=== PATIENT | male | born 1955 | race Caucasian/White ===

== ENCOUNTER 2022-09-05 16:10 | Outpatient (CLI) | payer MEDICAID, SELFPAY ==
--- NOTE | 2022-09-05 16:00 | RT.EKG_ITS ---
APPROVED REPORT Exam: Resting ECG Reason for Exam: chest discomfort Patient Location: O HR:97 bpm ECG Measurements Heart Rate 97 AXIS IA 195 P 59 QRSd 123 QRS -8 QT 377 T 36 QTc 479 Conclusion Sinus rhythm...normal P axis, V-rate 50- 99 Probable left atrial enlargement...P >50mS, <-0.10mV V1 IVCD, consider atypical RBBB...QRSd>120mS, terminal axis(90,270)
== END 2022-09-05 16:11 | disposition home or self-care (01) ==
LOC: DI.CM 16:11
PROVIDERS: Visit Provider Nurse Practitioner Family
DX: R07.89 Other chest pain (principal); R94.31 Abnormal electrocardiogram [ECG] [EKG]
CPT/HCPCS: 93010

== ENCOUNTER 2022-09-05 16:47 | Emergency (ER) | payer MEDICAID, SELFPAY ==
[2022-09-05 16:59] VITALS: BP 155/103; PULSE 86; RESP 18; TEMP 36.8; O2SAT 99
--- NOTE | 2022-09-05 17:00 | RT.EKG_ITS ---
APPROVED REPORT Exam: Resting ECG Reason for Exam: sob Patient Location: E HR:93 bpm ECG Measurements Heart Rate 93 AXIS CA 167 P 50 QRSd 112 QRS 4 QT 376 T 19 QTc 467 Conclusion Sinus rhythm...normal P axis, V-rate 60- 99 Incomplete right bundle branch block...QRSd >112, terminal axis(90,270)
[2022-09-05 18:14] VITALS: BP 177/98; PULSE 91; RESP 18; TEMP 36.7; O2SAT 94
[2022-09-05 19:49] VITALS: BP 169/104; PULSE 92; RESP 18; TEMP 37.2; O2SAT 96
--- NOTE | 2022-09-05 20:00 | DI.CT_ITS ---
Exam(s) CT CHEST PE ABD PELVIS W EXAM: CT CHEST PE ABD PELVIS W CLINICAL HISTORY: left sided chest and abdominal pain. TECHNIQUE: Imaging Protocol: Axial CT angiography was performed with multi-slice acquisition and mu lti-planar and/or 3D reconstructions. CONTRAST MATERIAL: Intravenous: Omnipaque 350contrast volume:100 mL COMPARISON: No exams were available for comparison FINDINGS: CHEST: Tracheobronchial tree: Patent where visualized. Pulmonary parenchyma: No consolidation or dominant measurable mass. No architectural distortion. Ther e is a 7 mm triangular subpleural nodule in the left lung apex laterally. Pulmonary Arteries: No evidence of filling defect to suggest pulmonary emboli. Mediastinum and Sharri: No dominant adenopathy or fluid collection. The esophagus is unremarkable. Ther e is a small hiatal hernia. Visualized thyroid gland: Unremarkable. Pleura: No effusion or pneumothorax. Heart: The heart is not dilated. No coronary artery calcifications are seen. No pericardial effusion. Aorta: Thoracic aorta non-dilated. No evidence of dissection. Bones: Within normal limits for the patient's age. Soft tissues: Unremarkable. ABDOMEN: Liver: Normal density. No measurable mass. Portal, Superior Mesenteric, and Splenic Veins: Unremarkable. Gallbladder and Biliary Tract: No radiodense calculus or dilation. Pancreas: Normal density, no abnormal calcifications or inflammatory process. Spleen: Normal. Adrenals: No masses seen. Kidneys: Normal size, contour and axis. No radiodense stones or obstructive uropathy. No masses seen. Abdominal Aorta: Abdominal portion non-dilated. Mild atherosclerosis. Bowel: No obstruction or bowel wall thickening. Appendix is unremarkable. There are few scattered col onic diverticuli but no evidence of acute diverticulitis. Peritoneal Cavity: No ascites, collection or mesenteric inflammatory response. No free air. Lymph Nodes: Within normal limits. Bones: Within normal limits for the patient's age. Soft Tissues: Unremarkable. PELVIS: Bladder: Symmetric distention, no gross wall thickening. Reproductive Organs: There is an enlarged prostate gland. Lymph Nodes: Within normal limits. Bones: Within normal limits. IMPRESSION: 1. No evidence pulmonary embolism, thoracic aortic dissection or aneurysm. 2. No acute pulmonary process. 3. No acute abdominal or pelvic process. 4. 7 mm subpleural area of nodularity in the left lung apex laterally. For low risk patients, recomm end CT a 12-6 months, then consider CT at 18-24 months. For high risk patients (history of smoking o r other risk factors), recommend CT at 6-12 months, then at 18-24 months. (Avis et al, 2017). RADIATION DOSE DELIVERED: 1,153.36mGy.cm Total DLP DATA REPOSITORY: All CT scans at this facility are submitted to the National Radiology Data Registry (NRDR) Dose Index Registry (DIR) with the [employer] (A[employer]). RADIATION OPTIMIZATION: All CT scans at this facility use at least one of these dose optimization te chniques: automated exposure control; mA and/or kV adjustment per patient size (includes targeted exa ms where dose is matched to clinical indication); or iterative reconstruction.
--- NOTE | 2022-09-05 20:03 | ED.GENADUL_ITS ---
Discharge Plan Disposition Patient Disposition: Home Condition: Stable Discharge Details Clinical Impression: Chest pain Primary Care Provider: Unknown,Unknown ED Provider: Torin Manning Home Meds and New Rx's Prescriptions: Continued acetaminophen [Tylenol] 325 mg capsule 325 mg PO ONCE PRN Discharge Instructions Instructions: Chest Pain (ED) Additional Instructions: your blood work and cat scan did not show emergent concerning findings at this time follow up with your primary care provider within 1 week and also bring up the incidental findings seen on the cat scan if you feel more ill, have severe worsening pain or difficulty breathing return to the emergency department Medical Decision Making 66 yo male with no chronic medical problems comes in with cc of intermittent sharp and aching left sided chest and abdominal pain for 3 days. HE does note he has been under a lot of stress recently from taking care of his aging parents. HE denies any fevers, chills, cough. He states sometimes the pain radiates to the left neck. HE is not a smoker and has never been a chronic smoker. He denies pain with exertion, dyspnea. HE arrives stable and states has no pain now. HE has stable vitals and appears well, caox4 speaking clearly. He has clear lungs, no murmurs, no jvd, soft abdomen though is tender in the left upper abdomen without guarding. Suspect this could be anxiety/stress related, will evaluate for possible nstemi with troponin, and given the left sided sharp chest pain obtain cta of the chest and ct abd/pelvis to evaluate for pathology such as pe or sbo though hasn't had vomiting so feel this is unlikely. labs and imaging unremarkable, has had symptoms over 3 hours so do not feel delta troponin indicated. His ct showed nonemergent incidental findings that I discussed with him and he was given a copy of the vrad report and told to f/u with his pcp. HE feels well and is stable for d/c, return precautions given Differential Diagnosis Differential Diagnosis: nstemi, pe, sbo, anxiety Imaging Data Radiologic Study: Attestation: I personally reviewed and interpreted this imaging study as follows: Imaging: CT Scan Radiologist's impression: 1. No evidence of aortic dissection. No evidence of pulmonary embolism. No acute vascular abnormalities. 2. Small hiatal hernia with suspected mild distal esophageal wall thickening, possibly mild changes of esophagitis. Consider nonemergent esophagram or endoscopic assessment as clinically indicated. 3. The mid to distal colon is largely contracted, probably accounting for the thick- walled appearance although slight adjacent stranding in the descending colon makes it difficult to exclude a mild element of colitis. No evidence of perforation or abscess. 4. There is a 7.5 mm juxtapleural nodule versus nodular fibrosis in the peripheral left pulmonary apex. Please see management recommendations above. 5. Mild diverticulosis involving the distal colon without evidence of acute diverticulitis. 6. Borderline enlarged right paratracheal node, nonspecific. 7. Severe prostate enlargement, nonspecific, correlate with P SA. 8. Additional nonemergent findings detailed above. Lab Data Lab results reviewed: Yes I reviewed the patient's lab results. ECG Data Attestation: I personally reviewed and interpreted this ECG (s) as follows: Prior ECG tracings: available for review Interpretation: sinus rhythm, rate of 93, pr 167, qtc 467, no stemi HPI General Mode of arrival: ambulatory . Date/Time Provider Initiated Documentation: 09/05/22 18:57 . Limitations to Documentation: no limitations . Information obtained by: patient . History of Present Illness 66 year old M presents to the emergency department with the chief complaint of left sided chest pain, described as moderate, Quality is described as aching, and is localized to the chest. Patient reports no radiation. Patient started experiencing this day(s) (3) and it has been intermittent. No relieving factors improve symptom(s), No exacerbating factors reported . Patient notes denies fever/chills and nausea/vomiting. Patient did receive the following treatments prior to arrival, none Related Data Home Medications Medication Instructions Recorded Confirmed acetaminophen 325 mg capsule 325 mg PO ONCE PRN 09/05/22 09/05/22 (Tylenol) Allergies Allergy/AdvReac Type Severity Reaction Status Date / Time codeine Allergy Severe Hives Verified 09/05/22 17:02 General Stated Complaint: Chest Pain NICK: 3 Review of Systems All systems reviewed & are unremarkable except as noted in HPI and below Constitutional Constitutional: Denies chills, Denies fever(s) and Denies weakness Cardiovascular Cardiovascular: Denies dyspnea Respiratory Respiratory: Denies cough and Denies dyspnea Gastrointestinal Gastrointestinal: Denies nausea and Denies vomiting Genitourinary Genitourinary: Denies dysuria Musculoskeletal Musculoskeletal: Denies joint swelling Integumentary/Breasts Skin/Breast: Denies rash Neurologic Neurologic: Denies weakness [facility] All Active Problems (Updated 09/05/22 @ 21:50 by Torin Manning MD) Chest pain (Acute) Social History Smoking/Tobacco Use Status: Former Tobacco Use Smoking risk assessment performed?: Yes Alcohol Intake: current Alcohol Intake frequency: 0-2 drinks per day Alcohol type: beer Substance use type: does not use Do you feel safe at home: Yes Do you feel safe in your relationship?: Yes Exam Const General: no acute distress Orientation: alert HENMT Head: normal to inspection Ears: external ears normal General nose exam: external nose normal Mouth: moist mucous membranes Eyes General: appearance normal, both eyes and all related structures Neck Neck: normal visual inspection Resp Effort & Inspection: normal respiratory effort and able to speak in complete sentences Auscultation: clear to auscultation bilaterally Cardio Jugular venous pressure: no JVD Rate: regular rate Heart Sounds: no murmurs GI Palpation: soft and tender Skin General skin exam: no rashes or lesions noted Neuro General: patient alert and patient oriented x3 Extrem General: normal to inspection Psych Mental Status: mental status grossly normal Course Vital Signs Vital signs: Vital Signs Temperature 36.8 C 09/05/22 16:59 Pulse 86 09/05/22 16:59 Respiratory Rate 18 09/05/22 16:59 Blood Pressure 155/103 H 09/05/22 16:59 Pulse Oximetry 99 09/05/22 16:59 Temperature 37.2 C 09/05/22 19:49 Temperature Source Skin 09/05/22 19:49 Pulse 92 H 09/05/22 19:49 Respiratory Rate 18 09/05/22 19:49 Respiratory Effort Normal, Non-Labored 09/05/22 17:01 Blood Pressure 169/104 H 09/05/22 19:49 Pulse Oximetry 96 09/05/22 19:49 Oxygen Delivery Method Room Air 09/05/22 19:49 Oxygen Flow Rate 0 09/05/22 19:49 PAWSS Have you Been Recently Intoxicated or Drunk Within the Last 30 days?: No Have you Ever Experienced Previous Episodes of Alcohol Withdrawal?: No Have you ever Experienced Withdrawal Seizures?: No Have you ever Experienced Delirium Tremens(DT)s?: No Have you ever undergone Alcohol Rehabilitation Treatment (i.e, inpt ot outpatient treatment programs)?: No Have you ever Experienced Blackouts?: No Have you ever Combined Alcohol with other Downers within the last 90 days?: No Have you ever Combined Alcohol with any other Substance of Abuse during the last 90 days?: No Positive Blood Alcohol level on Presentation? [PCS.BAL]: No Evidence of Increased Autonomic Activity (i.e. HR>120, tremor, sweating, agita tion, nausea)?: No Result: 0
[2022-09-05 20:06] LABS: Abs Immature Grans 0.01 10^3/uL (0.0-0.06); Absolute Basophil Count 0.03 10^3/uL (0.0-0.2); Absolute Eosinophil Count 0.03 10^3/uL (0.0-0.7); Absolute Lymphocyte Count 1.25 10^3/uL (1.2-3.4); Absolute Monocyte Count 0.45 10^3/uL (0.1-0.8); Absolute Neutrophil Count 4.93 10^3/uL (1.2-6.7); Basophils % 0.4; Eosinophils % 0.4; HCT 46.6 % (40.0-50.0); HGB 15.9 g/dL (13.5-17.5); Immature Grans % 0.1; Lymphocytes % 18.7; MCH 29.3 pg (27.0-33.0); MCHC 34.1 % (32.0-36.0); MCV 86 fL (80-95); MPV 9.4 fL (8.0-11.0); Monocytes % 6.7; Neutrophils % 73.7; Platelet Count 251 10^3/uL (130-400); RBC 5.42 10^6/uL (4.36-5.78); RDW-SD 40.5 fL
[2022-09-05 20:16] LABS: Bilirubin Negative (Negative); Blood Trace-intact (Negative); Clarity Clear (Clear); Glucose Negative (Negative); Ketones Negative (Negative); Leukocyte Esterase Negative (Negative); Nitrite Negative (Negative); Urobilinogen 0.2 mg/dL (Up to 0.2)
[2022-09-05 20:19] LABS: ALT 20 U/L (16-63); AST 18 U/L (15-37); Albumin 4.3 g/dL (3.4-5.0); Alkaline Phosphatase 73 U/L (46-116); BUN 14 mg/dL (7-18); Bilirubin, Total 0.4 mg/dL (0.2-1.0); CREATININE 1.1 mg/dL (0.70-1.30); Calcium 9.5 mg/dL (8.5-10.1); Chloride 107 mmol/L (98-107); Estimated GFR 74.96 (mL/min/1.73m2); Glucose 115 mg/dL (74-106); Lipase 24 U/L (16-77); Magnesium 2.3 mg/dL (1.8-2.4); Potassium 4.1 mmol/L (3.5-5.1); Sodium 141 mmol/L (136-145); Troponin I < 50 ng/L (<or=60)
[2022-09-05 20:23] LABS: Bacteria Negative HPF (Negative); C & S Indicated? No; Casts Negative LPF (Negative); Crystals Negative HPF (Negative); Epithelial Cells Few HPF (Negative); Mucus Negative (Negative); Other Cells Negative (Negative); WBC 0-2 HPF (0-5)
[2022-09-05] MEDS: Omnipaque 350 MG/ML 100 ML BTL IJ (20:46)
[2022-09-05 21:26] VITALS: BP 189/92; PULSE 84; RESP 20; TEMP 37.1; O2SAT 96
--- NOTE | 2022-09-05 21:33 | DI.VRAD_ITS ---
PROCEDURE INFORMATION: Exam: CTA Chest With Contrast CTA Abdomen With Contrast Exam date and time: 09/05/2022 8:41 PM Age: 66 years old Clinical indication: Chest wall pain; Abdominal pain; Localized; Left upper quadrant (luq); Additional info: Left sided chest and abdominal pain TECHNIQUE: Imaging protocol: Computed tomographic angiography of the chest with contrast. Computed tomographic angiography of the abdomen with contrast. 3D rendering (Not supervised by radiologist): MIP and/or 3D reconstructed images were created by the technologist. Radiation optimization: All CT scans at this facility use at least one of these dose optimization techniques: automated exposure control; mA and/or kV adjustment per patient size (includes targeted exams where dose is matched to clinical indication); or iterative reconstruction. Contrast material: OMNI 350; Contrast volume: 100 ml; Contrast route: INTRAVENOUS (IV); COMPARISON: No relevant prior studies available. FINDINGS: VASCULATURE: Pulmonary arteries: The pulmonary arteries enhance appropriately with no evidence of pulmonary embolism. Slight limitation to the assessment of the small peripheral basilar subsegmental branch vessels due to respiratory motion, although no suspected peripheral emboli were identified. Aorta: The thoracic aorta demonstrates slight tortuosity/ectasia but is otherwise normal. The abdominal aorta demonstrates mild calcific plaque without evidence of aneurysm, dissection, or stenosis. Celiac trunk and mesenteric arteries: The celiac artery demonstrates minor ostial calcific plaque without stenosis. Its major branch vessels are normal. The SMA and its major branch vessels are normal. The JORGE is normal. Renal arteries: The right main renal artery demonstrates mild ostial calcific plaque but is otherwise normal. The left main renal artery is normal. Right iliac arteries: The right common iliac artery demonstrates mild tortuosity and distal calcific plaque but is otherwise normal. The right external iliac artery demonstrates minimal distal calcific plaque but is otherwise normal. Left iliac arteries: The left common iliac artery demonstrates mild-moderate calcific plaque without stenosis and is otherwise normal. The left external iliac artery demonstrates mild tortuosity and mild distal calcific plaque but is otherwise normal. Thyroid: The visualized thyroid gland demonstrates no gross abnormality. CHEST: Lungs: No acute tracheobronchial abnormalities. Bilateral small pulmonary granulomatous calcifications. No gross pulmonary infiltrates or edema pattern. There is a 7.5 mm juxtapleural pulmonary nodule versus nodular scarring in the lateral left pulmonary apex on series 6, image 134. For patients at low risk (minimal or absent history of smoking and of other known risk factors), recommend CT at 6-12 months, then consider CT at 18-24 months. For patients at high risk (history of smoking or of other known risk factors), recommend CT at 6-12 months, then CT at 18-24 months. (Manuel et al., Fleischner Society, 2017). Pleural spaces: No pleural effusion. No pneumothorax. Heart: Heart size normal. Mild coronary artery calcification. No pericardial effusion. Mediastinal space: No mediastinal hematoma. Diaphragm: Small hiatal hernia. Question mild esophageal wall thickening in the distal segment suspicious for esophagitis. Consider nonemergent esophagram or endoscopic assessment as clinically indicated. ABDOMEN AND PELVIS: Liver: Normal contour. No mass lesions. No intrahepatic biliary ductal dilatation. Gallbladder and bile ducts: Normal. No calcified stones. No ductal dilation. Pancreas: Mild pancreatic atrophy without acute abnormality. No pancreatic ductal dilatation. Spleen: Normal. No splenomegaly. Adrenal glands: Normal. No adrenal mass. Kidneys and ureters: No acute abnormalities. No hydronephrosis or hydroureter. No urinary tract stones are identified. Stomach and bowel: The stomach is largely contracted. The small bowel is nondilated with no gross abnormality. The mid to distal colonic segments are largely contracted which probably accounts for the mildly thick-walled appearance although there is questionable slight stranding along the proximal descending colon, can not exclude mild changes of colitis. No perforation or abscess. There is mild distal colonic diverticulosis without evidence of diverticulitis. Appendix: The appendix is normal in caliber and demonstrates no evidence of appendicitis. Intraperitoneal space: No free fluid or air. Urinary bladder: Urinary bladder largely contracted without gross abnormality considering the degree of contraction. Reproductive: Severe prostate enlargement, nonspecific, correlate with PSA. Lymph nodes: No supraclavicular or axillary adenopathy. Borderline enlarged right paratracheal nodes measuring up to 10 mm short axis, nonspecific. No hilar adenopathy. No intra-abdominal/intrapelvic adenopathy. Bones/joints: No acute osseous abnormalities. Moderate-severe disc degenerative changes L4-L5 and L5-S1. Mild generalized thoracolumbar spondylosis. Soft tissues: Very small fatty umbilical hernia . No evidence of associated bowel herniation or strangulation. Prior bilateral inguinal hernia repairs noted without gross complication. IMPRESSION: 1. No evidence of aortic dissection. No evidence of pulmonary embolism. No acute vascular abnormalities. 2. Small hiatal hernia with suspected mild distal esophageal wall thickening, possibly mild changes of esophagitis. Consider nonemergent esophagram or endoscopic assessment as clinically indicated. 3. The mid to distal colon is largely contracted, probably accounting for the thick-walled appearance although slight adjacent stranding in the descending colon makes it difficult to exclude a mild element of colitis. No evidence of perforation or abscess. 4. There is a 7.5 mm juxtapleural nodule versus nodular fibrosis in the peripheral left pulmonary apex. Please see management recommendations above. 5. Mild diverticulosis involving the distal colon without evidence of acute diverticulitis. 6. Borderline enlarged right paratracheal node, nonspecific. 7. Severe prostate enlargement, nonspecific, correlate with PSA. 8. Additional nonemergent findings detailed above. Dictated and Authenticated by: Jasen Maher MD. Ordering:DORY Harkins MD
== END 2022-09-05 22:00 | disposition home or self-care (01) ==
PROVIDERS: Emergency Provider Emergency Medicine
DX: R07.89 Other chest pain (principal)
CPT/HCPCS: 71275; 74177; 80053; 83690; 93005; 99285; 81003; 81015; 83735; 84484; 85025; 93010; 99284; J3490

== ENCOUNTER 2022-10-25 17:15 | Outpatient (CLI) | payer MEDICAID, SELFPAY ==
--- NOTE | 2022-10-25 17:15 | RT.EKG_ITS ---
APPROVED REPORT Exam: Resting ECG Reason for Exam: Anxiety Patient Location: O HR:79 bpm ECG Measurements Heart Rate 79 AXIS ID 170 P 66 QRSd 115 QRS 15 QT 386 T 59 QTc 443 Conclusion Sinus rhythm...normal P axis, V-rate 50- 99 Incomplete right bundle branch block...QRSd >112, terminal axis(90,270)
== END 2022-10-25 17:16 | disposition home or self-care (01) ==
LOC: DI.CM 17:16
PROVIDERS: PCP Nurse Practitioner Family; Visit Provider Nurse Practitioner Family
DX: R07.89 Other chest pain (principal)
CPT/HCPCS: 93010

== ENCOUNTER 2022-10-25 18:18 | Emergency (ER) | payer MEDICAID, SELFPAY ==
--- NOTE | 2022-10-25 18:15 | RT.EKG_ITS ---
APPROVED REPORT Exam: Resting ECG Reason for Exam: chest pain Patient Location: E HR:86 bpm ECG Measurements Heart Rate 86 AXIS WA 167 P 58 QRSd 108 QRS 3 QT 368 T 52 QTc 441 Conclusion Sinus rhythm...normal P axis, V-rate 60- 99
[2022-10-25 18:21] VITALS: BP 160/80; PULSE 85; RESP 20; TEMP 36.8; O2SAT 97
[2022-10-25 19:23] LABS: Abs Immature Grans 0.01 10^3/uL (0.0-0.06); Absolute Basophil Count 0.03 10^3/uL (0.0-0.2); Absolute Eosinophil Count 0.06 10^3/uL (0.0-0.7); Absolute Monocyte Count 0.64 10^3/uL (0.1-0.8); Absolute Neutrophil Count 4.11 10^3/uL (1.2-6.7); Basophils % 0.5; HCT 44.2 % (40.0-50.0); HGB 15.1 g/dL (13.5-17.5); Immature Grans % 0.2; Lymphocytes % 18.5; MCHC 34.2 % (32.0-36.0); MCV 88 fL (80-95); MPV 9.7 fL (8.0-11.0); Monocytes % 10.8; Platelet Count 228 10^3/uL (130-400); RBC 5.03 10^6/uL (4.36-5.78); RDW 12.8 % (11.8-14.1); RDW-SD 41.2 fL; WBC 5.95 10^3/uL (4.4-10.8)
[2022-10-25 19:49] LABS: ALT 19 U/L (16-63); AST 11 U/L (15-37); Albumin 3.8 g/dL (3.4-5.0); Alkaline Phosphatase 72 U/L (46-116); Anion Gap 8.4 mmol/L (3-11); BUN 16 mg/dL (7-18); Bilirubin, Total 0.2 mg/dL (0.2-1.0); CO2 25.6 mmol/L (21.0-32.0); CREATININE 1.3 mg/dL (0.70-1.30); Chloride 105 mmol/L (98-107); Estimated GFR 61.35 (mL/min/1.73m2); Glucose 134 mg/dL (74-106); Lipase 32 U/L (16-77); Magnesium 2.1 mg/dL (1.8-2.4); Potassium 3.7 mmol/L (3.5-5.1); Sodium 139 mmol/L (136-145); TSH (W/Ref FT4) 4.35 uIU/mL (0.36-3.74); Total Protein 7.4 g/dL (6.4-8.2); Troponin I < 50 ng/L (<or=60)
[2022-10-25 19:54] LABS: D-Dimer 480 ng/mlFEU (<500)
[2022-10-25 21:46] VITALS: BP 155/100; PULSE 99; RESP 20; TEMP 36.4; O2SAT 96
[2022-10-25 21:50] VITALS: RESP 16
--- NOTE | 2022-10-25 23:48 | W.ED.GENAD ---
Discharge Plan Disposition Patient Disposition: Home Discharge Details Clinical Impression: Heart palpitations Primary Care Provider: Tio Kim ED Provider: Casie Gordon Home Meds and New Rx's Prescriptions: Continued acetaminophen [Tylenol] 325 mg capsule 325 mg PO ONCE PRN citalopram 10 mg tablet 10 mg PO DAILY Qty: 60 0RF lorazepam [Ativan] 1 mg tablet 1 mg PO BID PRN (Reason: anxiety) Qty: 10 0RF Rx Instructions: may begin with 1/4 tab PRN anxiety. Max dose 2 mg per day Discharge Instructions Instructions: Heart Palpitations (ED) Additional Instructions: Please follow-up for your Holter monitor Continue to take your citalopram as prescribed May be hold the Ativan at this time Follow-up with your doctor and let them know you are experiencing palpitations and return earlier should you have new or worsening complaints Return earlier should you have new or worsening complaints Discharge Orders Other Ambulatory Orders: Holter Monitor (Routine) Timeframe: 1 Week Facility: [facility] - Location: Respiratory Therapy Ordered By: Casie Gordon Discharge Data Discharge Date/Time-TO BE ENTERED AT DEPARTURE: 10/25/22 21:49 Medical Decision Making Patient presents from urgent care for report of palpitations Low suspicion for cardiac etiology of this patient presenting with palpitations in the absence of actual chest discomfort EKG and troponin are negative for acute abnormality Diagnostic labs are reassuring Set up for an outpatient Holter monitor Return precautions reviewed and patient expressed understanding HPI General Date/Time Provider Initiated Documentation: 10/25/22 18:50. HPI Narrative: This healthy 66-year-old gentleman presents with palpitations, recurrent over the course of the past several months. States his symptoms began after dinner this evening, felt his heart was racing and irregular. States it is now resolved. Was sent here from urgent care. Denies any chest discomfort, fever, chills. States he had a similar work-up approximately a month ago that was negative but he was started on citalopram which she started actually yesterday and Ativan today. He states the Ativan made him actually feel more stressed. He denies any calf pain or swelling. Related Data Home Medications Medication Instructions Recorded Confirmed acetaminophen 325 mg capsule 325 mg PO ONCE PRN 09/05/22 10/28/22 (Tylenol) citalopram 10 mg tablet 10 mg PO DAILY #60 tabs 05/11/23 05/15/23 lorazepam 1 mg tablet (Ativan) 1 mg PO BID PRN anxiety #10 tabs 10/24/22 10/28/22 Previous Rx's Medication Instructions Recorded citalopram 10 mg tablet 10 mg PO DAILY #60 tabs 10/24/22 lorazepam 1 mg tablet (Ativan) 1 mg PO BID PRN anxiety #10 tabs 10/24/22 Allergies Allergy/AdvReac Type Severity Reaction Status Date / Time codeine Allergy Severe Hives Verified 10/24/22 09:59 General Stated Complaint: GenMedical NICK: 3 PFSH All Active Problems (Updated 10/28/22 @ 07:05 by Sahara Abdul MD) Heart palpitations (Acute) Anxiety (Chronic) Panic attacks (Acute) Palpitation (Acute) Family History Mother Alcohol use disorder Breast cancer Stroke Heart disease Substance use disorder Father Heart disease Stroke Sister No problems noted. Sister No problems noted. Brother Cancer Prostate Brother Heart disease Brother Heart disease Son No problems noted. Daughter Depression Maternal Grandfather , Unknown Diabetes Heart disease Paternal Grandfather , Unknown No problems noted. Maternal Grandmother , Unknown No problems noted. Paternal Grandmother , Unknown No problems noted. Social History Smoking/Tobacco Use Status: Former Tobacco Use tobacco type: smokeless tobacco Quit Date: 05/16/22 Tobacco: How many years used: 25 Smokeless tobacco user: chewing tobacco Second Hand Exposure: Yes Smoking risk assessment performed?: Yes Alcohol Intake: current Alcohol Intake frequency: holidays/special occasions only Alcohol type: beer Drug use: Never Substance use type: does not use Caregiver/Support person: No Household members: spouse and other Details: Grand Daughter Housing: house Communication Needs: None Pets and animals: Yes Pets and animals: dog(s) Sexually active: Yes Do you think of yourself as: straight/heterosexual Current gender identity: male What is your relationship status?: How often do you talk on the phone with friends or family?: three or more times per week How often do you get together with friends or relatives?: once per week How often do you attend pentecostal or uatsdin services?: decline to answer Do you belong to any clubs or organized social groups?: no Panel score (0-1 are the most socially isolated patients): 2 What type of physical activity do you participate in: walking Duration: 30-45 minutes/day Frequency: daily Marcy/Holiness: No preference Special marcy needs: No Seatbelt use: always Helmet use: Yes Helmet use: sometimes Drive intox 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 Do you feel safe at home: Yes Do you feel safe in your relationship?: Yes Exam Narrative Exam Narrative: Patient is calm and cooperative, pupils equal round reactive to light and accommodation, lungs clear to auscultation, cardiac rate rhythm regular fully alert and oriented, no reproducible chest wall pain, alert and oriented x4, no calf sling or tenderness, neurovascularly intact Course Vital Signs Vital signs: Vital Signs Temperature 36.8 C 10/25/22 18:21 Pulse 85 10/25/22 18:21 Respiratory Rate 20 10/25/22 18:21 Blood Pressure 160/80 H 10/25/22 18:21 Pulse Oximetry 97 10/25/22 18:21 Temperature 36.4 C 10/25/22 21:46 Temperature Source Temporal Artery Scan 10/25/22 18:21 Pulse 99 H 10/25/22 21:46 Respiratory Rate 20 10/25/22 21:46 Respiratory Effort Normal, Non-Labored 10/25/22 18:25 Blood Pressure 155/100 H 10/25/22 21:46 Blood Pressure Position Sitting 10/25/22 18:21 Pulse Oximetry 96 10/25/22 21:46 Oxygen Delivery Method Room Air 10/25/22 18:21 Oxygen Flow Rate 0 10/25/22 18:21 Pain Level 0 10/25/22 18:21 Lab/Test Results Lab/Test Results: Laboratory Tests Range/Units 10/25/22 10/25/22 10/25/22 19:15 19:15 19:15 WBC (4.4-10.8) 10^3/uL 5.95 RBC (4.36-5.78) 10^6/uL 5.03 Hgb (13.5-17.5) g/dL 15.1 Hct (40.0-50.0) % 44.2 MCV (80-95) fL 88 MCH (27.0-33.0) pg 30.0 MCHC (32.0-36.0) % 34.2 RDW (11.8-14.1) % 12.8 Plt Count (130-400) 10^3/uL 228 MPV (8.0-11.0) fL 9.7 Immature Gran % 0.2 Neutrophils % 69.0 Lymphocytes % 18.5 Monocytes % 10.8 Eosinophils % 1.0 Basophils % 0.5 Nucleated RBC % (0.0-0.3) % 0.0 Absolute Neutrophils (1.2-6.7) 10^3/uL 4.11 Absolute Lymphocytes (1.2-3.4) 10^3/uL 1.10 L Absolute Monocytes (0.1-0.8) 10^3/uL 0.64 Absolute Eosinophils (0.0-0.7) 10^3/uL 0.06 Absolute Basophils (0.0-0.2) 10^3/uL 0.03 D-Dimer (<500) ng/mlFEU 480 Sodium (136-145) mmol/L 139 Potassium (3.5-5.1) mmol/L 3.7 Chloride (98-107) mmol/L 105 Carbon Dioxide (21.0-32.0) mmol/L 25.6 Anion Gap (3-11) mmol/L 8.4 BUN (7-18) mg/dL 16 Creatinine (0.70-1.30) mg/dL 1.3 Est GFR (CKD-EPI 2020) (mL/min/1.73m2) 61.35 Glucose (74-106) mg/dL 134 H Calcium (8.5-10.1) mg/dL 9.0 Magnesium (1.8-2.4) mg/dL 2.1 Total Bilirubin (0.2-1.0) mg/dL 0.2 AST (15-37) U/L 11 L ALT (16-63) U/L 19 Alkaline Phosphatase (46-116) U/L 72 Troponin I (<or=60) ng/L < 50 Total Protein (6.4-8.2) g/dL 7.4 Albumin (3.4-5.0) g/dL 3.8 Lipase (16-77) U/L 32 TSH (0.36-3.74) uIU/mL 4.35 H Free T4 (0.76-1.46) ng/dL 0.90 Range/Units 10/25/22 21:56 WBC (4.4-10.8) 10^3/uL RBC (4.36-5.78) 10^6/uL Hgb (13.5-17.5) g/dL Hct (40.0-50.0) % MCV (80-95) fL MCH (27.0-33.0) pg MCHC (32.0-36.0) % RDW (11.8-14.1) % Plt Count (130-400) 10^3/uL MPV (8.0-11.0) fL Immature Gran % Neutrophils % Lymphocytes % Monocytes % Eosinophils % Basophils % Nucleated RBC % (0.0-0.3) % Absolute Neutrophils (1.2-6.7) 10^3/uL Absolute Lymphocytes (1.2-3.4) 10^3/uL Absolute Monocytes (0.1-0.8) 10^3/uL Absolute Eosinophils (0.0-0.7) 10^3/uL Absolute Basophils (0.0-0.2) 10^3/uL D-Dimer (<500) ng/mlFEU Sodium (136-145) mmol/L Potassium (3.5-5.1) mmol/L Chloride (98-107) mmol/L Carbon Dioxide (21.0-32.0) mmol/L Anion Gap (3-11) mmol/L BUN (7-18) mg/dL Creatinine (0.70-1.30) mg/dL Est GFR (CKD-EPI 2020) (mL/min/1.73m2) Glucose (74-106) mg/dL Calcium (8.5-10.1) mg/dL Magnesium (1.8-2.4) mg/dL Total Bilirubin (0.2-1.0) mg/dL AST (15-37) U/L ALT (16-63) U/L Alkaline Phosphatase (46-116) U/L Troponin I (<or=60) ng/L Cancelled Total Protein (6.4-8.2) g/dL Albumin (3.4-5.0) g/dL Lipase (16-77) U/L TSH (0.36-3.74) uIU/mL Free T4 (0.76-1.46) ng/dL
== END 2022-10-25 21:49 | disposition home or self-care (01) ==
PROVIDERS: Emergency Provider Physician Assistant; PCP Nurse Practitioner Family
DX: R11.0 Nausea (principal); R42 Dizziness and giddiness; R00.2 Palpitations; R07.9 Chest pain, unspecified
CPT/HCPCS: 80053; 83690; 93005; 99283; 83735; 84439; 84443; 84484; 85025; 85379; 93010

== ENCOUNTER 2022-10-28 05:35 | Emergency (ER) | payer MEDICAID, SELFPAY ==
[2022-10-28] VITALS (16 sets, daily range): BP systolic 116–163; BP diastolic 75–90; PULSE 60–77; RESP 13–24; TEMP 37.2; O2SAT 92–100
--- NOTE | 2022-10-28 05:30 | RT.EKG_ITS ---
APPROVED REPORT Exam: Resting ECG Reason for Exam: chest pain Patient Location: E HR:76 bpm ECG Measurements Heart Rate 76 AXIS OH 155 P 8 QRSd 119 QRS 6 QT 398 T 36 QTc 448 Conclusion Sinus rhythm...normal P axis, V-rate 60- 99 Incomplete right bundle branch block...QRSd >112, terminal axis(90,270) No interum change vs 09/05
--- NOTE | 2022-10-28 05:45 | DI.RAD_ITS ---
Exam(s) XR PORTABLE CHEST AP EXAM: XR PORTABLE CHEST AP CLINICAL HISTORY: SOB, CP TECHNIQUE: 2D digital imaging was performed. COMPARISON: No exams were available for comparison FINDINGS: LUNGS: Clear. No pleural abnormality seen. HEART: Normal size. AORTA: Normal diameter. BONES: Unremarkable for age. Soft tissues: Unremarkable. IMPRESSION: No acute findings. DATA REPOSITORY: RADIATION DOSE DELIVERED:
--- NOTE | 2022-10-28 05:49 | ED.GENADUL_ITS ---
Discharge Plan Disposition Patient Disposition: Home Condition: Good Discharge Details Clinical Impression: Anxiety, Panic attacks Primary Care Provider: Tio Kim ED Provider: Sahara Abdul Home Meds and New Rx's Prescriptions: Continued acetaminophen [Tylenol] 325 mg capsule 325 mg PO ONCE PRN citalopram 10 mg tablet 10 mg PO DAILY Qty: 60 0RF lorazepam [Ativan] 1 mg tablet 1 mg PO BID PRN (Reason: anxiety) Qty: 10 0RF Rx Instructions: may begin with 1/4 tab PRN anxiety. Max dose 2 mg per day Discharge Instructions Instructions: Anxiety (ED), Panic Attack (ED) Additional Instructions: Return home and rest. If you become anxious again you need to take 1 mg of lorazepam or 1 tablet at a time. Return to ED for crushing chest pain or shortness of breath. Follow-up with your new primary care doctor as scheduled later this month. Medical Decision Making After 2 mg of IV Ativan the patient is calm and all of his symptoms have resolved. We had a long discussion about anxiety and panic attacks. He has an appointment to see his new PCP the end of this month. He does have a small amount of Ativan to use as needed. I have advised him to take an entire 1 mg tablet if he needs it. He will return to the ED for crushing chest pain, severe difficulty breathing, any other concerns. Medical Records Medical records reviewed: Yes I reviewed the patient's medical records. Imaging Data Radiologic Study: Radiologist's impression: CXR: NAD Lab Data Lab results reviewed: Yes I reviewed the patient's lab results. Lab results narrative: Patient has an elevated anion gap of little over 17. I suspect this is related to his citalopram has the remainder of his labs look pretty good. His TSH from 512 was 4.35 with a free T4 of 0.9. Trop is nl topday. So ECG Data Attestation: I personally reviewed and interpreted this ECG (s) as follows: (NSR 75, incomplete RBBB, no ST abnl, no change versus 09/05) HPI General Date/Time Provider Initiated Documentation: 10/28/22 05:49 . HPI Narrative: This 66-year-old male patient with a history of anxiety and panic attacks presents with chest pain and shortness of breath. Patient states that he was just given lorazepam to take for his panic attacks. He was told to take 1/4 tablet as needed, took it once, and thinks that he felt worse. I reassured him that I do not think it was the Ativan making him feel worse. When I ask him what his typical panic attacks are like he says that he breaks out into a sweat, feels his heart pounding, gets short of breath, has discomfort that goes into his left arm, and feels dizzy. He has been ongoing for years but this morning's is a little bit worse. He awoke several hours ago with the symptoms. He says he has just a little bit of pain on the left-hand side and feels some pain under his left scapula. When I asked him about the pain under his left scapula he states that this is constant and baseline with his panic attacks as well. He denies fever, URI symptoms, headache, belly pain, vomiting, or dysuria. There is no pedal edema or calf pain. He does acknowledge a small amount of diarrhea a night ago. Related Data Home Medications Medication Instructions Recorded Confirmed acetaminophen 325 mg capsule 325 mg PO ONCE PRN 09/05/22 10/28/22 (Tylenol) citalopram 10 mg tablet 10 mg PO DAILY #60 tabs 10/24/22 10/28/22 lorazepam 1 mg tablet (Ativan) 1 mg PO BID PRN anxiety #10 tabs 10/24/22 10/28/22 Previous Rx's Medication Instructions Recorded citalopram 10 mg tablet 10 mg PO DAILY #60 tabs 10/24/22 lorazepam 1 mg tablet (Ativan) 1 mg PO BID PRN anxiety #10 tabs 10/24/22 Allergies Allergy/AdvReac Type Severity Reaction Status Date / Time codeine Allergy Severe Hives Verified 10/24/22 09:59 General Stated Complaint: Chest Pain NICK: 3 Review of Systems Constitutional Constitutional: Denies chills, Denies fever(s), Denies headache(s), Denies weakness and Reports other (Had sweats) Eyes Eyes: Denies diplopia and Reports other (no redness) ENT Ears, Nose, Mouth, and Throat: Denies vertigo, Reports dizziness, Denies otalgia, Denies headache(s), Denies nasal congestion, Denies nasal discharge, Denies neck pain and Denies sore throat Cardiovascular Cardiovascular: Reports chest pain, Reports palpitations and Reports dyspnea Respiratory Respiratory: Denies cough and Reports dyspnea Gastrointestinal Gastrointestinal: Denies abdominal pain, Denies diarrhea, Denies nausea and Denies vomiting Genitourinary Genitourinary: Denies difficulty urinating and Denies dysuria Musculoskeletal Musculoskeletal: Denies myalgias, Denies muscle weakness, Denies neck pain, Denies numbness and Reports other (edema) Integumentary/Breasts Skin/Breast: Denies change in pigmentation and Denies rash Neurologic Neurologic: Denies vertigo, Reports dizziness, Denies headache(s), Denies numbness and Denies weakness Endocrine Endocrine: Reports palpitations PFSH All Active Problems (Updated 10/28/22 @ 07:05 by Sahara Abdul MD) Heart palpitations (Acute) Anxiety (Chronic) Panic attacks (Acute) Palpitation (Acute) Family History Mother Alcohol use disorder Breast cancer Stroke Heart disease Substance use disorder Father Heart disease Stroke Sister No problems noted. Sister No problems noted. Brother Cancer Prostate Brother Heart disease Brother Heart disease Son No problems noted. Daughter Depression Maternal Grandfather , Unknown Diabetes Heart disease Paternal Grandfather , Unknown No problems noted. Maternal Grandmother , Unknown No problems noted. Paternal Grandmother , Unknown No problems noted. Social History Smoking/Tobacco Use Status: Former Tobacco Use tobacco type: smokeless tobacco Quit Date: 05/16/22 Tobacco: How many years used: 25 Smokeless tobacco user: chewing tobacco Second Hand Exposure: Yes Smoking risk assessment performed?: Yes Alcohol Intake: current Alcohol Intake frequency: holidays/special occasions only Alcohol type: beer Drug use: Never Substance use type: does not use Caregiver/Support person: No Household members: spouse and other Details: Grand Daughter Housing: house Communication Needs: None Pets and animals: Yes Pets and animals: dog(s) Sexually active: Yes Do you think of yourself as: straight/heterosexual Current gender identity: male What is your relationship status?: How often do you talk on the phone with friends or family?: three or more times per week How often do you get together with friends or relatives?: once per week How often do you attend quaker or sabianism services?: decline to answer Do you belong to any clubs or organized social groups?: no Panel score (0-1 are the most socially isolated patients): 2 What type of physical activity do you participate in: walking Duration: 30-45 minutes/day Frequency: daily Marcy/Jewish: No preference Special marcy needs: No Seatbelt use: always Helmet use: Yes Helmet use: sometimes 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 Do you feel safe at home: Yes Do you feel safe in your relationship?: Yes Exam Const General: well developed, well groomed and other (Anxious) Nutritional Appearance: well nourished Orientation: alert and oriented x3 HENMT Head: normocephalic and atraumatic Ears: external ears normal Mouth: oropharynx normal and moist mucous membranes Throat: posterior oropharynx normal Eyes Conjunctivae: conjunctivae normal Neck Neck: full ROM and supple Chest Chest: normal inspection of the chest Resp Effort & Inspection: normal respiratory effort Auscultation: clear to auscultation bilaterally Cardio Rate: regular rate Rhythm: regular rhythm Heart Sounds: no murmurs and no rubs GI Inspection: normal to inspection Palpation: soft, nontender and other (non distended) Auscultation: normal bowel sounds Skin General skin exam: no rashes or lesions noted and other (pink, warm, dry) Neuro General: patient alert, patient awake and patient oriented x3 Speech: speech normal Motor: other (VILLAVICENCIO) Sensory Exam: no sensory deficits noted Extrem General: normal to inspection, full ROM and pedal edema present Psych Mental Status: mental status grossly normal Speech and Movement: speech and movement normal Affect: normal affect Course Vital Signs Vital signs: Vital Signs Temperature 37.2 C 10/28/22 05:39 Pulse 76 10/28/22 05:39 Respiratory Rate 24 10/28/22 05:39 Blood Pressure 163/90 H 10/28/22 05:39 Pulse Oximetry 98 10/28/22 05:39 Temperature 37.2 C 10/28/22 05:39 Temperature Source Temporal Artery Scan 10/28/22 05:39 Pulse 76 10/28/22 05:39 Respiratory Rate 24 10/28/22 05:39 Respiratory Effort Normal, Non-Labored 10/28/22 05:47 Blood Pressure 163/90 H 10/28/22 05:39 Blood Pressure Position Sitting 10/28/22 05:39 Pulse Oximetry 98 10/28/22 05:39 Oxygen Delivery Method Room Air 10/28/22 05:39 Oxygen Flow Rate 0 10/28/22 05:39 Pain Level 6 10/28/22 05:39
[2022-10-28 06:11] LABS: Abs Immature Grans 0.02 10^3/uL (0.0-0.06); Absolute Basophil Count 0.03 10^3/uL (0.0-0.2); Absolute Eosinophil Count 0.06 10^3/uL (0.0-0.7); Absolute Lymphocyte Count 1.72 10^3/uL (1.2-3.4); Absolute Monocyte Count 0.65 10^3/uL (0.1-0.8); Absolute Neutrophil Count 4.17 10^3/uL (1.2-6.7); Basophils % 0.5; Eosinophils % 0.9; HCT 48.2 % (40.0-50.0); HGB 16.9 g/dL (13.5-17.5); Immature Grans % 0.3; Lymphocytes % 25.9; MCH 30.1 pg (27.0-33.0); MCHC 35.1 % (32.0-36.0); MCV 86 fL (80-95); MPV 9.8 fL (8.0-11.0); Monocytes % 9.8; Neutrophils % 62.6; Platelet Count 245 10^3/uL (130-400); RBC 5.61 10^6/uL (4.36-5.78); RDW 12.6 % (11.8-14.1); RDW-SD 39.3 fL; WBC 6.65 10^3/uL (4.4-10.8)
[2022-10-28] MEDS: LORazepam 2 MG/ML VIAL 1 MG IVP ×2 (06:11→06:31)
--- NOTE | 2022-10-28 06:24 | DI.VRAD_ITS ---
PROCEDURE INFORMATION: Exam: XR Chest Exam date and time: 10/28/2022 6:05 AM Age: 66 years old Clinical indication: Cough and shortness of breath TECHNIQUE: Imaging protocol: Radiologic exam of the chest. Views: 1 view. COMPARISON: CT CHEST PE ABD PELVIS W 09/05/2022 8:41 PM FINDINGS: Tubes, catheters and devices: Overlying monitoring leads. Lungs: Lungs clear. Pleural spaces: No pneumothorax. Heart/Mediastinum: Heart not enlarged. Bones/joints: Unremarkable. IMPRESSION: Nonacute findings. Dictated and Authenticated by: Evgeny Rodriguez MD. Ordering:DAJA Shoemaker MD
[2022-10-28 06:31] LABS: ALT 21 U/L (16-63); AST 13 U/L (15-37); Albumin 4.1 g/dL (3.4-5.0); Alkaline Phosphatase 77 U/L (46-116); Anion Gap 17.6 mmol/L (3-11); BUN 16 mg/dL (7-18); Bilirubin, Total 0.7 mg/dL (0.2-1.0); CO2 23.4 mmol/L (21.0-32.0); CREATININE 1.2 mg/dL (0.70-1.30); Calcium 9.4 mg/dL (8.5-10.1); Chloride 100 mmol/L (98-107); Estimated GFR 67.53 (mL/min/1.73m2); Glucose 132 mg/dL (74-106); Potassium 3.8 mmol/L (3.5-5.1); Sodium 141 mmol/L (136-145)
[2022-10-28 06:32] LABS: Troponin I < 50 ng/L (<or=60)
== END 2022-10-28 07:22 | disposition home or self-care (01) ==
PROVIDERS: Emergency Provider Emergency Medicine; PCP Nurse Practitioner Family
DX: F41.9 Anxiety disorder, unspecified (principal); F41.0 Panic disorder [episodic paroxysmal anxiety]; R06.02 Shortness of breath
CPT/HCPCS: 80053; 93005; 96374; 99284; 71045; 83735; 84484; 85025; 93010; J2060

== ENCOUNTER 2022-11-22 18:28 | Emergency (ER) | payer MEDICAID, SELFPAY ==
[2022-11-22] VITALS (33 sets, daily range): BP systolic 164–182; BP diastolic 98–101; PULSE 67–74; RESP 10–22; TEMP 36.8; O2SAT 95–99
--- NOTE | 2022-11-22 18:30 | RT.EKG_ITS ---
APPROVED REPORT Exam: Resting ECG Reason for Exam: Dizziness Patient Location: E HR:72 bpm ECG Measurements Heart Rate 72 AXIS [place] 187 P 20 QRSd 116 QRS -7 QT 395 T 41 QTc 431 Conclusion Sinus rhythm...normal P axis, V-rate 60- 99 Incomplete right bundle branch block...QRSd >112, terminal axis(90,270)
--- NOTE | 2022-11-22 18:50 | ED.GENADUL_ITS ---
Discharge Plan Disposition Patient Disposition: Home Condition: Stable Discharge Details Clinical Impression: Diarrhea Primary Care Provider: Tio Kim ED Provider: Nancy Kapoor Home Meds and New Rx's Prescriptions: Continued acetaminophen [Tylenol] 325 mg capsule 325 mg PO ONCE PRN citalopram 10 mg tablet 10 mg PO DAILY Qty: 60 0RF lorazepam [Ativan] 1 mg tablet 1 mg PO BID PRN (Reason: anxiety) Qty: 10 0RF Rx Instructions: may begin with 1/4 tab PRN anxiety. Max dose 2 mg per day mirtazapine 15 mg tablet 15 mg PO QHS Qty: 90 0RF Discharge Instructions Instructions: Acute Diarrhea (ED) Additional Instructions: Labs are within normal limits. You may take an antacid like Pepcid which you can get over the counter. Clear liquids for the next 12 to 24 hours advance as tolerated. Stay away from anything fried, fatty spicy. Follow up with primary care provider in 3-5 days. Return to ED sooner if any worsening or concerns. Increase oral fluids. Referrals: Tio Kim, ACCOUNTING ADMINISTRATIVE ASSISTANT [Primary Care Provider] - 3 days Medical Decision Making 66-year-old male presents to the ER with a chief complaint of diarrhea, dizziness weakness and abdominal burning which he reports began yesterday. He has had a total of 4 episodes of watery diarrhea since last night. He reports upper abdominal pain that radiates into his back. He was seen in [facility] couple of days ago and diagnosed with anxiety attack. He does have a history of anxiety and takes mirtazapine lorazepam and citalopram. He has had a hernia repair. Denies any nausea vomiting or any other associated symptoms. He does endorse chills no fever. Work-up ordered including CBC CMP, troponin, lipase urinalysis. Differential diagnosis includes but not limited to coronary artery disease, anxiety, gastroenteritis, cholecystitis, viral illness. EKG was reviewed by Dr. Vikram Manning ER attending, no change, no stemi, incomplete right bundle branch block. Labs within normal limits, initial troponin within normal limits second troponin canceled due to no chest pain. No electrolyte abnormalities. Urinalysis shows trace blood no leukocytes no nitrites no evidence of UTI. Patient given Pepcid and a milligram of lorazepam which he requested. Discussed home care follow-up care diet and strict return instructions. This text was generated using [employer] system, please disregard any oddities of phrase or misspellings. Medical Records Medical records reviewed: Yes I reviewed the patient's medical records. Lab Data Lab results reviewed: Yes I reviewed the patient's lab results. Labs: Laboratory Tests Range/Units 11/22/22 11/22/22 11/22/22 19:00 19:00 19:10 WBC (4.4-10.8) 10^3/uL 6.37 RBC (4.36-5.78) 10^6/uL 5.45 Hgb (13.5-17.5) g/dL 16.2 Hct (40.0-50.0) % 47.4 MCV (80-95) fL 87 MCH (27.0-33.0) pg 29.7 MCHC (32.0-36.0) % 34.2 RDW (11.8-14.1) % 12.5 Plt Count (130-400) 10^3/uL 267 MPV (8.0-11.0) fL 9.1 Immature Gran % 0.2 Neutrophils % 61.6 Lymphocytes % 25.9 Monocytes % 10.2 Eosinophils % 1.6 Basophils % 0.5 Nucleated RBC % (0.0-0.3) % 0.0 Absolute Neutrophils (1.2-6.7) 10^3/uL 3.93 Absolute Lymphocytes (1.2-3.4) 10^3/uL 1.65 Absolute Monocytes (0.1-0.8) 10^3/uL 0.65 Absolute Eosinophils (0.0-0.7) 10^3/uL 0.10 Absolute Basophils (0.0-0.2) 10^3/uL 0.03 Sodium (136-145) mmol/L 138 Potassium (3.5-5.1) mmol/L 3.5 Chloride (98-107) mmol/L 104 Carbon Dioxide (21.0-32.0) mmol/L 25.2 Anion Gap (3-11) mmol/L 8.8 BUN (7-18) mg/dL 15 Creatinine (0.70-1.30) mg/dL 1.2 Est GFR (CKD-EPI 2020) (mL/min/1.73m2) 67.53 Glucose (74-106) mg/dL 120 H Calcium (8.5-10.1) mg/dL 9.4 Magnesium (1.8-2.4) mg/dL 2.4 Total Bilirubin (0.2-1.0) mg/dL 0.3 AST (15-37) U/L 17 ALT (16-63) U/L 25 Alkaline Phosphatase (46-116) U/L 82 Troponin I (<or=60) ng/L < 50 Total Protein (6.4-8.2) g/dL 7.7 Albumin (3.4-5.0) g/dL 3.9 Lipase (16-77) U/L 27 Urine Color (Yellow) Yellow Urine Clarity (Clear) Clear Urine pH (5-8) 5.5 Ur Specific [place] (1.005-1.025) 1.010 Urine Protein (Negative) mg/dL Negative Urine Ketones (Negative) mg/dL Negative Urine Blood (Negative) Trace-intact H Urine Nitrite (Negative) Negative Urine Bilirubin (Negative) Negative Urine Urobilinogen (Up to 0.2) mg/dL 0.2 Ur Leukocyte Esterase (Negative) Negative Urine RBC (0-2) HPF 0-2 Urine WBC (0-5) HPF Negative Ur Epithelial Cells (Negative) HPF Negative Urine Crystals (Negative) HPF Negative Urine Bacteria (Negative) HPF Negative Urine Casts (Negative) LPF Negative Urine Mucus (Negative) Negative Ur Culture Indicated? No Urine Glucose (Negative) mg/dL Negative Range/Units 11/22/22 21:43 WBC (4.4-10.8) 10^3/uL RBC (4.36-5.78) 10^6/uL Hgb (13.5-17.5) g/dL Hct (40.0-50.0) % MCV (80-95) fL MCH (27.0-33.0) pg MCHC (32.0-36.0) % RDW (11.8-14.1) % Plt Count (130-400) 10^3/uL MPV (8.0-11.0) fL Immature Gran % Neutrophils % Lymphocytes % Monocytes % Eosinophils % Basophils % Nucleated RBC % (0.0-0.3) % Absolute Neutrophils (1.2-6.7) 10^3/uL Absolute Lymphocytes (1.2-3.4) 10^3/uL Absolute Monocytes (0.1-0.8) 10^3/uL Absolute Eosinophils (0.0-0.7) 10^3/uL Absolute Basophils (0.0-0.2) 10^3/uL Sodium (136-145) mmol/L Potassium (3.5-5.1) mmol/L Chloride (98-107) mmol/L Carbon Dioxide (21.0-32.0) mmol/L Anion Gap (3-11) mmol/L BUN (7-18) mg/dL Creatinine (0.70-1.30) mg/dL Est GFR (CKD-EPI 2020) (mL/min/1.73m2) Glucose (74-106) mg/dL Calcium (8.5-10.1) mg/dL Magnesium (1.8-2.4) mg/dL Total Bilirubin (0.2-1.0) mg/dL AST (15-37) U/L ALT (16-63) U/L Alkaline Phosphatase (46-116) U/L Troponin I (<or=60) ng/L Cancelled Total Protein (6.4-8.2) g/dL Albumin (3.4-5.0) g/dL Lipase (16-77) U/L Urine Color (Yellow) Urine Clarity (Clear) Urine pH (5-8) Ur Specific [place] (1.005-1.025) Urine Protein (Negative) mg/dL Urine Ketones (Negative) mg/dL Urine Blood (Negative) Urine Nitrite (Negative) Urine Bilirubin (Negative) Urine Urobilinogen (Up to 0.2) mg/dL Ur Leukocyte Esterase (Negative) Urine RBC (0-2) HPF Urine WBC (0-5) HPF Ur Epithelial Cells (Negative) HPF Urine Crystals (Negative) HPF Urine Bacteria (Negative) HPF Urine Casts (Negative) LPF Urine Mucus (Negative) Ur Culture Indicated? Urine Glucose (Negative) mg/dL HPI General Mode of arrival: ambulatory . Date/Time Provider Initiated Documentation: 11/22/22 18:28 . Limitations to Documentation: no limitations . Information obtained by: patient, RN notes reviewed and old records reviewed . HPI Narrative: 66-year-old male presents to the ER with a chief complaint of diarrhea, dizziness weakness and abdominal burning which he reports began yesterday. He has had a total of 4 episodes of watery diarrhea since last night. He reports upper abdominal pain that radiates into his back. He was seen in [facility] couple of days ago and diagnosed with anxiety attack. He does have a history of anxiety and takes mirtazapine lorazepam and citalopram. He has had a hernia repair. Denies any nausea vomiting or any other associated symptoms. He does endorse chills no fever. Related Data Home Medications Medication Instructions Recorded Confirmed acetaminophen 325 mg capsule 325 mg PO ONCE PRN 09/05/22 11/22/22 (Tylenol) citalopram 10 mg tablet 10 mg PO DAILY #60 tabs 10/24/22 11/22/22 lorazepam 1 mg tablet (Ativan) 1 mg PO BID PRN anxiety #10 tabs 11/05/22 11/22/22 mirtazapine 15 mg tablet 15 mg PO QHS #90 tabs 11/12/22 11/22/22 Previous Rx's Medication Instructions Recorded citalopram 10 mg tablet 10 mg PO DAILY #60 tabs 10/24/22 lorazepam 1 mg tablet (Ativan) 1 mg PO BID PRN anxiety #10 tabs 11/05/22 mirtazapine 15 mg tablet 15 mg PO QHS #90 tabs 11/12/22 Allergies Allergy/AdvReac Type Severity Reaction Status Date / Time codeine Allergy Severe Hives Verified 11/22/22 18:40 General Stated Complaint: Nausea/Vomit/Diar NICK: 3 Review of Systems All systems reviewed & are unremarkable except as noted in HPI and below ENT Ears, Nose, Mouth, and Throat: Reports dizziness Cardiovascular Cardiovascular: Denies chest pain and Denies dyspnea Respiratory Respiratory: Denies dyspnea Gastrointestinal Gastrointestinal: Reports abdominal pain, Reports heartburn and Reports diarrhea Genitourinary Genitourinary: Denies dysuria Neurologic Neurologic: Reports dizziness [facility] All Active Problems (Updated 11/22/22 @ 19:44 by Nancy aKpoor NP) Diarrhea (Acute) Palpitation (Acute) Heart palpitations (Acute) Anxiety (Chronic) Panic attacks (Acute) Family History Mother Alcohol use disorder Breast cancer Stroke Heart disease Substance use disorder Father Heart disease Stroke Sister No problems noted. Sister No problems noted. Brother Cancer Prostate Brother Heart disease Brother Heart disease Son No problems noted. Daughter Depression Maternal Grandfather , Unknown Diabetes Heart disease Paternal Grandfather , Unknown No problems noted. Maternal Grandmother , Unknown No problems noted. Paternal Grandmother , Unknown No problems noted. Social History Smoking/Tobacco Use Status: Former Tobacco Use tobacco type: smokeless tobacco Quit Date: 05/16/22 Tobacco: How many years used: 25 Smokeless tobacco user: chewing tobacco Second Hand Exposure: Yes Smoking risk assessment performed?: Yes Alcohol Intake: current Alcohol Intake frequency: holidays/special occasions only Alcohol type: beer Drug use: Never Substance use type: does not use Caregiver/Support person: No Household members: spouse and other Details: Grand Daughter Housing: house Communication Needs: None Pets and animals: Yes Pets and animals: dog(s) Sexually active: Yes Do you think of yourself as: straight/heterosexual Current gender identity: male What is your relationship status?: How often do you talk on the phone with friends or family?: three or more times per week How often do you get together with friends or relatives?: once per week How often do you attend amish or evangelical services?: decline to answer Do you belong to any clubs or organized social groups?: no Panel score (0-1 are the most socially isolated patients): 2 What type of physical activity do you participate in: walking Duration: 30-45 minutes/day Frequency: daily Marcy/Lutheran: No preference Special marcy needs: No Seatbelt use: always Helmet use: Yes Helmet use: sometimes Drive intox or ride w/intox truck driver instructor: No Do you feel safe at home: Yes Do you feel safe in your relationship?: Yes Exam Narrative Exam Narrative: Constitutional: Alert and oriented x3. Appears stated age. Normal body habitus. Head: Normocephalic, no trauma. Eyes: Pupils PERRL, Red reflex noted, EOM's intact. Eyelids symmetrical without lesions, discharge, or swelling. ENT: Bilateral TM's WNL, External ear normal to inspection, no mastoid TTP, swelling, or erythema, Nasal turbinates WNL, no nasal discharge. Normal dentition, Posterior pharynx WNL, no exudate. Chest: RRR, Normal S1, S2, distal pulses intact. Resp: Lungs clear to auscultation bilaterally, no wheezes, rales, or rhonchi. Abdomen: Soft, non-distended, Normoactive bowel sounds all 4 quads. Right upper quadrant tenderness with palpation. Musculoskeletal: Normal gait, 5/5 strength to all four extremities. Skin: No suspicious rashes or lesions. Capillary refill less than 2 sec. Neurologic: Cranial nerves II-XII intact. Alert and oriented x 3. Motor: No deficits noted. Sensory: Intact bilaterally all 4 extremities. Reflexes: DTR's intact bilaterally.. Hematologic/Lymphatic: No ecchymosis, no lymphadenopathy. Course Vital Signs Vital signs: Vital Signs Temperature 36.8 C 11/22/22 18:35 Pulse 74 11/22/22 18:35 Respiratory Rate 16 11/22/22 18:35 Blood Pressure 168/100 H 11/22/22 18:35 Pulse Oximetry 99 11/22/22 18:35 Temperature 36.8 C 11/22/22 18:35 Temperature Source Temporal Artery Scan 11/22/22 18:35 Pulse 74 11/22/22 18:35 Respiratory Rate 16 11/22/22 18:35 Respiratory Effort Normal 11/22/22 18:35 Blood Pressure 168/100 H 11/22/22 18:35 Blood Pressure Position Sitting 11/22/22 18:35 Pulse Oximetry 99 11/22/22 18:35 Oxygen Delivery Method Room Air 11/22/22 18:35 Oxygen Flow Rate 0 11/22/22 18:35 Pain Level 0 11/22/22 18:35
[2022-11-22 19:10] LABS: Abs Immature Grans 0.01 10^3/uL (0.0-0.06); Absolute Basophil Count 0.03 10^3/uL (0.0-0.2); Absolute Lymphocyte Count 1.65 10^3/uL (1.2-3.4); Absolute Monocyte Count 0.65 10^3/uL (0.1-0.8); Absolute Neutrophil Count 3.93 10^3/uL (1.2-6.7); Basophils % 0.5; Eosinophils % 1.6; HCT 47.4 % (40.0-50.0); HGB 16.2 g/dL (13.5-17.5); Immature Grans % 0.2; Lymphocytes % 25.9; MCH 29.7 pg (27.0-33.0); MCHC 34.2 % (32.0-36.0); MCV 87 fL (80-95); MPV 9.1 fL (8.0-11.0); Monocytes % 10.2; Neutrophils % 61.6; Platelet Count 267 10^3/uL (130-400); RBC 5.45 10^6/uL (4.36-5.78); RDW 12.5 % (11.8-14.1); RDW-SD 39.7 fL; WBC 6.37 10^3/uL (4.4-10.8)
[2022-11-22 19:20] LABS: Bilirubin Negative (Negative); Blood Trace-intact (Negative); Clarity Clear (Clear); Glucose Negative (Negative); Ketones Negative (Negative); Leukocyte Esterase Negative (Negative); Nitrite Negative (Negative); Urobilinogen 0.2 mg/dL (Up to 0.2); pH 5.5 (5-8)
[2022-11-22 19:27] LABS: Bacteria Negative HPF (Negative); C & S Indicated? No; Casts Negative LPF (Negative); Crystals Negative HPF (Negative); Epithelial Cells Negative HPF (Negative); Mucus Negative (Negative); RBC 0-2 HPF (0-2); WBC Negative HPF (0-5)
[2022-11-22 19:27] LABS: ALT 25 U/L (16-63); AST 17 U/L (15-37); Albumin 3.9 g/dL (3.4-5.0); Alkaline Phosphatase 82 U/L (46-116); Anion Gap 8.8 mmol/L (3-11); BUN 15 mg/dL (7-18); Bilirubin, Total 0.3 mg/dL (0.2-1.0); CO2 25.2 mmol/L (21.0-32.0); CREATININE 1.2 mg/dL (0.70-1.30); Calcium 9.4 mg/dL (8.5-10.1); Chloride 104 mmol/L (98-107); Estimated GFR 67.53 (mL/min/1.73m2); Glucose 120 mg/dL (74-106); Lipase 27 U/L (16-77); Magnesium 2.4 mg/dL (1.8-2.4); Potassium 3.5 mmol/L (3.5-5.1); Sodium 138 mmol/L (136-145); Total Protein 7.7 g/dL (6.4-8.2); Troponin I < 50 ng/L (<or=60)
[2022-11-22] MEDS: LORazepam 1 MG TAB PO (19:47)
[2022-11-22] MEDS: FAMOTIDINE 20 MG in Normal Saline 100 ML 400 MG IVPB (19:47)
== END 2022-11-22 20:03 | disposition home or self-care (01) ==
PROVIDERS: Emergency Provider Registered Nurse Emergency; PCP Nurse Practitioner Family
DX: R19.7 Diarrhea, unspecified (principal); R42 Dizziness and giddiness; R53.1 Weakness
CPT/HCPCS: 36415; 80053; 83690; 93005; 96374; 99284; 81003; 81015; 83735; 84484; 85025; 93010

== ENCOUNTER 2022-11-24 05:14 | Emergency (ER) | payer MEDICAID, SELFPAY ==
[2022-11-24 05:16] VITALS: BP 162/94; PULSE 87; RESP 22; TEMP 36.2; O2SAT 99
--- NOTE | 2022-11-24 05:23 | NUR.NOTE ---
Nursing Note: Pt comes to the ED with his but is refusing to have her be in the room with him. He states he needs to speak to her about his infidelity but is afraid that the outcome will not be good and that it may cause a fight possibly verbal and physically. He is having concerns that his would leave and take the children away from him. MD Bee speaking to the pt about his concerns and that he is afraid of her and is frightened he may become physically out of control The pt is unable to sit still at triage. Pt is unsure if he is SI at this time, but states, i'm going to loose control, I'm not safe, I feel like my heart is pounding, like a heart attack The pt then stated he did not have any affairs, but had a seperation in the past and that he is going through something similar this nurse clarified with the pt about self harm, he is currently denying SI. pt states he is followed up with crisis counselors and advocates, is currently on medication for anxiety.
--- NOTE | 2022-11-24 05:30 | RT.EKG_ITS ---
APPROVED REPORT Exam: Resting ECG Reason for Exam: anxiety Patient Location: E HR:71 bpm ECG Measurements Heart Rate 71 AXIS ME 171 P 49 QRSd 116 QRS 4 QT 406 T 31 QTc 441 Conclusion Sinus rhythm...normal P axis, V-rate 60- 99 Incomplete right bundle branch block...QRSd >112, terminal axis(90,270) Physician: no stemi
--- NOTE | 2022-11-24 05:31 | ED.GENADUL_ITS ---
Discharge Plan Disposition Patient Disposition: Home Condition: Good Discharge Details Chief Complaint: PsychEval Clinical Impression: Anxiety Primary Care Provider: Tio Kim ED Provider: Sahil Bee Home Meds and New Rx's Prescriptions: No Action acetaminophen [Tylenol] 325 mg capsule 325 mg PO ONCE PRN citalopram 10 mg tablet 10 mg PO DAILY Qty: 60 0RF lorazepam [Ativan] 1 mg tablet 1 mg PO BID PRN (Reason: anxiety) Qty: 10 0RF Rx Instructions: may begin with 1/4 tab PRN anxiety. Max dose 2 mg per day mirtazapine 15 mg tablet 15 mg PO QHS Qty: 90 0RF Discharge Instructions Instructions: Diazepam (By mouth), Anxiety (ED) Additional Instructions: Please follow-up closely with your mental health advocates. They will be contacting you over the next few days for check-in's. Please abide by the s afety plan that was discussed. Please take the Valium if needed for anxiety. If you notice any worsening of your symptoms, or any new symptoms such as vomiting, diarrhea, fever, chills, shortness of breath, chest pain, numbness, weakness, or fainting , please return immediately to the emergency department for reevaluation. Please follow up with your primary care provider as soon as possible for reassessment and reevaluation. As always, it was a pleasure participating in your medical care today. Referrals: Tio Kim, CERTIFIED PEER SPECIALIST [Primary Care Provider] - Medical Decision Making 66-year-old male with a past medical history of anxiety panic attacks recently over the last few months, presents today for evaluation of anxiety. Patient's story is slightly inconsistent, however he states that he feels extremely anxious, but notably denies any homicidal, suicidal ideations. He initially stated that the source of his anxiety is infidelity and affairs that he has had, and he is terrified about bringing this up with his . However later in the conversation he states that he has not had any affairs or infidelity, and he is worried about bringing up divorce with his . It does not appear to be consistently clear as to what the actual sources. However he does very clearly state that he is worried that if he brings any confrontational issue up with his , it will escalate and cause notable confrontation that could result in potential physical confrontation. He says he gets anxious and terrified whenever he thinks about talking about this with his . He has seen 1 counselor via telehealth but has not been able to follow-up with anyone else yet. He denies any drugs, or alcohol use. He has been taking his lorazepam and citalopram and mirtazapine at home but this does not help to resolve the symptoms. No other complaints at this time. No other modifying factors. Physical exam demonstrates well-appearing male. We did get an EKG out of an abundance of precaution, no evidence of STEMI or significant abnormality. We will give 2 mg of oral Ativan. We will reach out to mental [facility] and have them evaluate the patient for additional counseling. 7 AM [facility] has seen and evaluated patient. They have created a safety plan with the patient, and a plan for home care. They will have check-in's over the next few days, and also get the patient the opportunity for the care bed for space to think if needed. Patient agrees with this plan. Family is also in agreement with this plan upon my discussion with them. We will give 10 mg of Valium for home use as needed. Patient otherwise stable. No homicidal or suicidal ideations. I have extensively reviewed the treatment plan and discharge instructions with the patient and their family. I have addressed all patient concerns at this time. The patient and family was made aware of what symptoms to monitor for that would warrant a return to the emergency department. Discussed the plan with the patient and family, they demonstrate verbal understanding and agreement with our assessment and plan at this time. The documentation in this chart was dictated using [employer] dictation software. Please excuse any dictation errors. HPI General Date/Time Provider Initiated Documentation: 11/24/22 05:15 . HPI Narrative: 66-year-old male with a past medical history of anxiety panic attacks recently over the last few months, presents today for evaluation of anxiety. Patient's story is slightly inconsistent, however he states that he feels extremely anxious, but notably denies any homicidal, suicidal ideations. He initially stated that the source of his anxiety is infidelity and affairs that he has had, and he is terrified about bringing this up with his . However later in the conversation he states that he has not had any affairs or infidelity, and he is worried about bringing up divorce with his . It does not appear to be consistently clear as to what the actual sources. However he does very clearly state that he is worried that if he brings any confrontational issue up with his , it will escalate and cause notable confrontation that could result in potential physical confrontation. He says he gets anxious and terrified whenever he thinks about talking about this with his . He has seen 1 counselor via telehealth but has not been able to follow-up with anyone else yet. He denies any drugs, or alcohol use. He has been taking his lorazepam and citalopram and mirtazapine at home but this does not help to resolve the symptoms. No other complaints at this time. No other modifying factors. Related Data Home Medications Medication Instructions Recorded Confirmed acetaminophen 325 mg capsule 325 mg PO ONCE PRN 09/05/22 11/24/22 (Tylenol) citalopram 10 mg tablet 10 mg PO DAILY #60 tabs 10/24/22 11/24/22 lorazepam 1 mg tablet (Ativan) 1 mg PO BID PRN anxiety #10 tabs 11/05/22 0 11/24/22 mirtazapine 15 mg tablet 15 mg PO QHS #90 tabs 11/12/22 11/24/22 Previous Rx's Medication Instructions Recorded citalopram 10 mg tablet 10 mg PO DAILY #60 tabs 10/24/22 lorazepam 1 mg tablet (Ativan) 1 mg PO BID PRN anxiety #10 tabs 11/05/22 mirtazapine 15 mg tablet 15 mg PO QHS #90 tabs 11/12/22 Allergies Allergy/AdvReac Type Severity Reaction Status Date / Time codeine Allergy Severe Hives Verified 11/22/22 18:40 General Stated Complaint: PsychEval NICK: 2 Review of Systems All systems reviewed & are unremarkable except as noted in HPI and below PFSH All Active Problems (Updated 11/24/22 @ 06:58 by Sahil Bee DO) Diarrhea (Acute) Anxiety (Chronic) Palpitation (Acute) Heart palpitations (Acute) Anxiety (Chronic) Panic attacks (Acute) Family History Mother Alcohol use disorder Breast cancer Stroke Heart disease Substance use disorder Father Heart disease Stroke Sister No problems noted. Sister No problems noted. Brother Cancer Prostate Brother Heart disease Brother Heart disease Son No problems noted. Daughter Depression Maternal Grandfather , Unknown Diabetes Heart disease Paternal Grandfather , Unknown No problems noted. Maternal Grandmother , Unknown No problems noted. Paternal Grandmother , Unknown No problems noted. Social History Smoking/Tobacco Use Status: Former Tobacco Use tobacco type: smokeless tobacco Quit Date: 05/16/22 Tobacco: How many years used: 25 Smokeless tobacco user: chewing tobacco Second Hand Exposure: Yes Smoking risk assessment performed?: Yes Alcohol Intake: current Alcohol Intake frequency: holidays/special occasions only Alcohol type: beer Drug use: Never Substance use type: does not use Caregiver/Support person: No Household members: spouse and other Details: Grand Daughter Housing: house Communication Needs: None Pets and animals: Yes Pets and animals: dog(s) Sexually active: Yes Do you think of yourself as: straight/heterosexual Current gender identity: male What is your relationship status?: How often do you talk on the phone with friends or family?: three or more times per week How often do you get together with friends or relatives?: once per week How often do you attend mu-ism or denominational services?: decline to answer Do you belong to any clubs or organized social groups?: no Panel score (0-1 are the most socially isolated patients): 2 What type of physical activity do you participate in: walking Duration: 30-45 minutes/day Frequency: daily Marcy/Confucianist: No preference Special marcy needs: No Seatbelt use: always Helmet use: Yes Helmet use: sometimes Drive intox or ride w/intox mobile lounge driver or operator: No Do you feel safe at home: No (feels he is not safe from himself) Do you feel safe in your relationship?: Yes Exam Narrative Exam Narrative: 1.Const: Well-nourished, Well-developed, appearing stated age 2.Eyes: PERRL, no conjunctival injection, and symmetrical lids. 3.ENT: Atraumatic external nose and ears. Moist MM. Neck: Symmetric, trachea midline, No thyromegaly. 4.CVS: +S1/S2, No murmurs or gallops. Peripheral pulses 2+ and equal in all extremities. Brisk capillary refill in all extremities. 5.RESP: Unlabored respiratory effort. Clear to auscultation bilaterally. No wheezes rales or rhonchi 6.GI: Soft, Nontender/Nondistended, No hepatosplenomegaly. No guarding or rebound. 7.MSK: Normocephalic/Atraumatic, Extremities w/o deformity or ttp No cyanosis or clubbing, Normal movement of all extremities 8.Skin: Warm, Dry. No rashes or lesions. 9.Neuro: consultant electronics II-XII grossly intact. Sensation grossly intact, no focal neurol ogic deficits. 10.Psych: (AAO) x3. Extremely anxious, and tearful Course Vital Signs Vital signs: Vital Signs Temperature 36.2 C L 11/24/22 05:16 Pulse 87 11/24/22 05:16 Respiratory Rate 11/24/22 05:16 Blood Pressure 162/94 H 11/24/22 05:16 Pulse Oximetry 99 11/24/22 05:16 Temperature 36.2 C L 11/24/22 05:16 Temperature Source Temporal Artery Scan 11/24/22 05:16 Pulse 87 11/24/22 05:16 Respiratory Rate 11/24/22 05:16 Respiratory Effort Normal, Non-Labored 11/24/22 05:20 Blood Pressure 162/94 H 11/24/22 05:16 Blood Pressure Position Sitting 11/24/22 05:16 Pulse Oximetry 99 11/24/22 05:16 Oxygen Delivery Method Room Air 11/24/22 05:16 Oxygen Flow Rate 0 11/24/22 05:16 Pain Level 0 11/24/22 05:16
[2022-11-24] MEDS: LORazepam 1 MG TAB 2 MG PO (05:39)
--- NOTE | 2022-11-24 06:20 | NUR.NOTE ---
Nursing Note: Pt speaking with crisis counselor via Zoom
[2022-11-24] MEDS: diazePAM 5 MG TAB (07:12)
--- NOTE | 2022-11-24 13:57 | PDOC.MHCN_ITS ---
Date of service: 11/24/22 Time of Service: 06:10 PHQ-9 Over the last 2 weeks, how often have you been bothered by any of the following problems? 1. Little interest or pleasure in doing things: several days 2. Feeling down, depressed, or hopeless: nearly every day 3. Trouble falling or staying asleep, or sleeping too much: nearly every day 4. Feeling tired or having little energy: nearly every day 5. Poor appetite or overeating: several days 6. Feeling bad about yourself - or that you are a failure or have let yourself and your family down: nearly every day 7. Trouble concentrating on things, such as reading the newspaper or watching television: nearly every day 8. Moving or speaking so slowly that other people could have noticed? - Or the opposite - being so fidgety or restless that you have been moving around a lot more than usual: several days 9. Thoughts that you would be better off or of hurting yourself in some way: nearly every day Total score: 21 If you checked off any problems, how difficult have these problems made it for you to do your work, take care of things at home, or get along with other people?: extremely difficult PHQ-9 Results: Positive Source: Developed by Drs. Irving Sheridan, Oxana Goff, Wagner Wolfe and colleagues, with an educational basilio from [employer]. Suicide Severity Rate CSSRS Have you wished you were or wished you could go to sleep and not wake up?: Yes Have you actually had any thoughts of killing yourself?: Yes CSSRS2 Have you been thinking about how you might do this?: Yes Have you had these thoughts and had some intention of acting on them?: No Have you started to work out or worked out the details of how to kill yourself? Do you intend to carry out this plan?: No CSSRS3 Have you ever done anything, started to do anything or prepared to do anything to end your life?: No CSSRS4 Was this within the past three months?: No Screening Score Total Score: 4 Screening: Positive Mental Health Emergency Note Release [facility] release signed:: Yes Reason for Visit Client is not known to [facility] prior to this writers interaction with the client today. Client presents to [facility] ED with chief complaint of increased anxiety. According to [facility] ED provider Sahil Bee client reports that he is having marital issues that he is causing severe anxiety. Client reports that he is scared to talk to his as each time he talks to her she becomes upset yelling and screaming. Client is seen via zoom. In the last 2 weeks has the pt presented for ES prior to today?: No Client Information Client is: New Well Housed: Yes Non Suicidal Self Injury Current: No History: No Safety Risk/Harm to Self or Others Current Ideation to Harm Self or Others: Yes to self. (Client reports fleeting thoughts of SI) Intent: no, has no intent. Plan: no.does not have a plan. History of suicide attempt: No history of suicide attempt reported Risk: Does risk to harm exist?: yes. Risk: Low Risk Duty to warn indicated: No Asssessment/Mental Status Appearance: Unremarkable Attitude: Cooperative Behavior: Unremarkable Speech: Pressured Affect: Flat and Cogruent with mood Mood: Sad, Stressed, Depressed and Anxious Thought process: Unremarkable Hallucinations: No Delusions: No Attention: Poor concentration Perception: Not impaired Orientation: Fully orientated Memory: Intact Insight: Fair Judgement: Fair Neurovegetative Symptoms Sleep: Decrease Appetitie: Decrease Interests: Decrease Libido: Not applicable Additional Issues: Assaultive/Threatening Behavior: No Medical Concerns: No Client engaged in active self harm w/weapon: No Threatening to run away: No Child reported abuse/neglect: No Voluntarily presenting for services: Yes Domestic violence is a concern: No Extreme Psychosis or extreme behavior is present: No Impression Client is a 66 y/o male that lives in [facility] with his and granddaughter. Client is seen via zoom at [facility] ED. Client presents with symptoms most congruent to adjustment disorder mixed with anxiety and depression as evidenced by self-report, loss of interest in doing things that used to bring basil, lack of energy, and disorganized eating and sleep patterns. It appears that onset of symptoms started back in August, however the client is unable to speak as to what happened back in August that made his anxiety increase. Client reports to this freelance copywriter: I have been having marital problems and want to get , however I am unable to have a conversation with her as she becomes upset and yells and screams at me. Client reports to this freelance copywriter that he has fleeting suicidal ideations, however denies intent or plan to act on his thoughts. Client would benefit from a crisis bed stay to get stabilized on his medications, decrease suicidal ideation, and to learn healthy coping skills. Client would also benefit from coaching on how to have a healthy conversation with his regarding his needs and wants. Resources Reosurces reviewed and given:: 988, Crisis Bed and [facility] Plan/Disposition Recommended Disposition: Crisis bed, No. Plan: Client will return home on pro-active safety plan that is developed with this freelance copywriter. Client will complete check-in phone call at 1p this afternoon and a referral will be completed for the care bed in [facility]. Client is also provided with [facility] 24 hour phone number as well as [phone] to utilize if additional support is needed.? Person reported agreement to plan: Yes Reports/communication Outcome discussed with: ED/Personnel (Verbal passover given to ED provider Dr. Bee. )
== END 2022-11-24 07:31 | disposition home or self-care (01) ==
PROVIDERS: Emergency Provider Student in an Organized Health Care Education/Training Program; PCP Nurse Practitioner Family
DX: F41.9 Anxiety disorder, unspecified (principal); R45.851 Suicidal ideations
CPT/HCPCS: 93005; 96374; 99284; 93010

== ENCOUNTER 2022-12-13 01:17 | Outpatient (CLI) | payer MEDICAID, SELFPAY ==
[2022-12-13 12:49] LABS: Microalb ug/mg Crea 6.9 ug/mg Cr
[2022-12-13 12:51] LABS: ALT 21 U/L (16-63); AST 19 U/L (15-37); Albumin 3.8 g/dL (3.4-5.0); Alkaline Phosphatase 74 U/L (46-116); Anion Gap 7.3 mmol/L (3-11); BUN 18 mg/dL (7-18); Bilirubin, Total 0.6 mg/dL (0.2-1.0); CO2 28.7 mmol/L (21.0-32.0); CREATININE 1.1 mg/dL (0.70-1.30); Calculated LDL 164 mg/dL (<100); Chloride 107 mmol/L (98-107); Cholesterol 221 mg/dL (<200); Glucose 102 mg/dL (74-106); HDL Cholesterol 42 mg/dL (40-60); Potassium 4.2 mmol/L (3.5-5.1); Sodium 143 mmol/L (136-145); Total Protein 7.5 g/dL (6.4-8.2); Triglyceride 78 mg/dL (<150)
[2022-12-13 20:09] LABS: PSA, Screening 6.4 ng/mL (<=4.5)
[2022-12-14 09:16] LABS: HIV-1/2 Ag & Ab Screen Negative (Negative)
[2022-12-16 11:12] LABS: Hepatitis C Ab w Rflx HCV PCR Negative (Negative)
== END 2022-12-13 01:18 | disposition home or self-care (01) ==
LOC: LOS 01:17
PROVIDERS: PCP Nurse Practitioner Family; Visit Provider Nurse Practitioner Family
DX: Z11.4 Encounter for screening for human immunodeficiency virus [HIV] (principal); Z13.220 Encounter for screening for lipoid disorders; Z12.5 Encounter for screening for malignant neoplasm of prostate; I10 Essential (primary) hypertension; Z11.59 Encounter for screening for other viral diseases
CPT/HCPCS: 36415; 80053; 80061; 84153; 86803; 87389; 82043; 82570

== ENCOUNTER → 2023-01-02 12:42 | Outpatient (BNVA) | payer MEDICARE, SELFPAY | PROVIDERS: PCP Nurse Practitioner Family; Referring Provider Nurse Practitioner Family; Visit Provider Nurse Practitioner Gerontology | DX: R97.20 Elevated prostate specific antigen [PSA] (principal); N40.2 Nodular prostate without lower urinary tract symptoms; Z80.42 Family history of malignant neoplasm of prostate; I10 Essential (primary) hypertension | CPT/HCPCS: 99214 ==

== ENCOUNTER → 2023-03-10 08:32 | Outpatient (BNVA) | payer MEDICARE, SELFPAY | PROVIDERS: PCP Nurse Practitioner Family; Referring Provider Nurse Practitioner Family; Visit Provider Nurse Practitioner Gerontology | DX: R97.20 Elevated prostate specific antigen [PSA] (principal); N40.2 Nodular prostate without lower urinary tract symptoms; I10 Essential (primary) hypertension | CPT/HCPCS: 99214 ==

== ENCOUNTER → 2023-03-31 00:46 | Outpatient (CLI) | payer MEDICARE, SELFPAY ==
--- NOTE | 2023-03-31 08:52 | DI.CT_ITS ---
Exam(s) CT CHEST WO EXAM: CT CHEST WO CLINICAL HISTORY: f/u CT,SUBPLEURAL NODULARITY LT LUNG,R91.1. TECHNIQUE: Imaging protocol: Axial computed tomography images were obtained and coronal and sagittal reformatted images were created and reviewed. COMPARISON: CT CT CHEST PE ABD PELVIS W from 09/05/2022 FINDINGS: Tracheobronchial tree: Patent where visualized. Pulmonary parenchyma: There is a stable 7 mm triangular shaped subpleural nodule in the left lung ape x laterally. There are calcified granuloma present. No new pulmonary nodules. No focal consolidati ng infiltrates are present. Mediastinum and Sharri: No dominant adenopathy or fluid collection. The esophagus is unremarkable. Thyroid gland: There are several tiny (less than 4 mm hypodensities in the thyroid gland. No follow- up is recommended. Pleura: No effusion or pneumothorax. Heart: The heart is not dilated. Three vessel coronary artery calcification is present. No pericardi al effusion. Aorta: Thoracic aorta non-dilated. Atherosclerosis is present. Upper abdomen: Unremarkable. Lymph nodes: Within normal limits. Soft tissues: Unremarkable. Bones:Within normal limits for the patient's age. IMPRESSION: Stable left apical nodule. Follow-up examination in 12 months is recommended. (Avis et al, 2017) . RADIATION DOSE DELIVERED: Total DLP Total DLP DATA REPOSITORY: All CT scans at this facility are submitted to the National Radiology Data Registry (NRDR) Dose Index Registry (DIR) with the [employer] (ACR). RADIATION OPTIMIZATION: All CT scans at this facility use at least one of these dose optimization te chniques: automated exposure control; mA and/or kV adjustment per patient size (includes targeted exa ms where dose is matched to clinical indication); or iterative reconstruction.
== END ==
PROVIDERS: PCP Nurse Practitioner Family; Visit Provider Nurse Practitioner Family
DX: R91.1 Solitary pulmonary nodule (principal)
CPT/HCPCS: 71250

== ENCOUNTER → 2023-04-03 14:33 | Outpatient (BNVA) | payer MEDICARE, SELFPAY | PROVIDERS: PCP Nurse Practitioner Family; Referring Provider Nurse Practitioner Family; Visit Provider Urology | DX: N40.2 Nodular prostate without lower urinary tract symptoms (principal); R97.20 Elevated prostate specific antigen [PSA] | CPT/HCPCS: 55700; 76942 ==

== ENCOUNTER 2023-04-03 15:15 | Outpatient (REF) | payer MEDICARE, SELFPAY ==
--- NOTE | 2023-04-03 15:30 | PROST_PTH ---
PATIENT: Juve Carpenter LOC: [facility] U#:[id number] AGE/SX: 67/M ROOM: RE04/03/[address]: Reyes Pearl MD : 1955 BED: DIS: 04/03/2023 SPEC #: [id number] RECD: 04/03/23 17:10 STATUS: LISA RE #: [id number] OSMEL: 04/03/23 15:[address]: Reyes Pearl DEPT: Surgical Specimen RECD BY: Casie Power ENTERED: 04/03/23 17:11 SP TYPE: PROST OTHR DR: Tio Olson DNP Tissues: 1 - PROSTATE NEEDLE BIOPSY 2 - PROSTATE NEEDLE BIOPSY 3 - PROSTATE NEEDLE BIOPSY 4 - PROSTATE NEEDLE BIOPSY 5 - PROSTATE NEEDLE BIOPSY 6 - PROSTATE NEEDLE BIOPSY 7 - PROSTATE NEEDLE BIOPSY 8 - PROSTATE NEEDLE BIOPSY 9 - PROSTATE NEEDLE BIOPSY 10 - PROSTATE NEEDLE BIOPSY 11 - PROSTATE NEEDLE BIOPSY 12 - PROSTATE NEEDLE BIOPSY Procedures: GROSS AND MICRO LEVEL 4 Comments: [id number]
== END 2023-04-03 15:16 | disposition home or self-care (01) ==
LOC: LBN 15:15
PROVIDERS: PCP Nurse Practitioner Family; Visit Provider Urology
DX: C61 Malignant neoplasm of prostate (principal)
CPT/HCPCS: 55700; 88305

== ENCOUNTER → 2023-04-15 10:43 | Outpatient (BNVA) | payer MEDICARE, SELFPAY | PROVIDERS: PCP Nurse Practitioner Family; Referring Provider Nurse Practitioner Family; Visit Provider Urology | DX: C61 Malignant neoplasm of prostate (principal) | CPT/HCPCS: 99215 ==

== ENCOUNTER 2023-04-21 00:58 | Outpatient (CLI) | payer MEDICARE, SELFPAY ==
[2023-04-21 12:44] LABS: ALT 36 U/L (16-63); AST 24 U/L (15-37); Albumin 3.9 g/dL (3.4-5.0); Alkaline Phosphatase 70 U/L (46-116); Anion Gap 7.4 mmol/L (3-11); BUN 17 mg/dL (7-18); Bilirubin, Total 0.4 mg/dL (0.2-1.0); CO2 26.6 mmol/L (21.0-32.0); CREATININE 1.2 mg/dL (0.70-1.30); Calcium 9.1 mg/dL (8.5-10.1); Calculated LDL 126 mg/dL (<100); Chloride 104 mmol/L (98-107); Cholesterol 193 mg/dL (<200); Estimated GFR 67.11 (mL/min/1.73m2); Glucose 105 mg/dL (74-106); HDL Cholesterol 47 mg/dL (40-60); Potassium 4.2 mmol/L (3.5-5.1); Sodium 138 mmol/L (136-145); Total Protein 7.6 g/dL (6.4-8.2); Triglyceride 102 mg/dL (<150)
== END 2023-04-21 00:59 | disposition home or self-care (01) ==
PROVIDERS: PCP Nurse Practitioner Family; Visit Provider Nurse Practitioner Family
DX: E78.5 Hyperlipidemia, unspecified (principal)
CPT/HCPCS: 36415; 80053; 80061

== ENCOUNTER → 2023-04-30 01:08 | Outpatient (CLI) | payer MEDICARE, SELFPAY ==
--- NOTE | 2023-04-30 07:15 | DI.NM_ITS ---
Exam(s) NM BONE SCAN WHOLE BODY GRP EXAM: NM BONE SCAN WHOLE BODY GRP CLINICAL HISTORY: baseline study,PROSTATE CA,C61. TECHNIQUE: Injected Dose: 25 mCi Tc-99m MDP Delayed Images: 2-3 hours. COMPARISON: CT CT CHEST WO from 03/31/2023 FINDINGS: There is no abnormal uptake in the skeleton which would suggest metastatic disease. There is some focal uptake seen in 2 places in left great toe and in the base the right 2nd toe which are most probably degenerative. Also some uptake in the right wrist which is degenerative. There is symmetrical focal uptake seen in the superolateral aspect of the orbits which is probably wi thin the lacrimal glands. No abnormal uptake seen in the skull. IMPRESSION: No evidence to suggest osseous metastatic disease. DATA REPOSITORY:
== END ==
PROVIDERS: PCP Nurse Practitioner Family; Visit Provider Urology
DX: C61 Malignant neoplasm of prostate (principal)
CPT/HCPCS: 78306

== ENCOUNTER → 2023-05-06 14:42 | Outpatient (BNVA) | payer MEDICARE, SELFPAY | PROVIDERS: PCP Nurse Practitioner Family; Referring Provider Nurse Practitioner Family; Visit Provider Urology | DX: C61 Malignant neoplasm of prostate (principal) | CPT/HCPCS: 99213 ==

== ENCOUNTER 2023-05-29 10:14 | Outpatient (CLI) | payer MEDICARE, SELFPAY ==
[2023-05-29 10:14] LABS: Abs Immature Grans 0.02 10^3/uL (0.0-0.06); Absolute Basophil Count 0.04 10^3/uL (0.0-0.2); Absolute Eosinophil Count 0.15 10^3/uL (0.0-0.7); Absolute Lymphocyte Count 1.32 10^3/uL (1.2-3.4); Absolute Neutrophil Count 4.32 10^3/uL (1.2-6.7); Basophils % 0.6; Eosinophils % 2.3; HCT 44.6 % (40.0-50.0); HGB 15.1 g/dL (13.5-17.5); Immature Grans % 0.3; Lymphocytes % 20.5; MCH 29.8 pg (27.0-33.0); MCHC 33.9 % (32.0-36.0); MCV 88 fL (80-95); Monocytes % 9.3; Platelet Count 217 10^3/uL (130-400); RBC 5.07 10^6/uL (4.36-5.78); RDW-SD 41.9 fL; WBC 6.45 10^3/uL (4.4-10.8)
[2023-05-29 10:47] LABS: ALT 27 U/L (16-63); AST 16 U/L (15-37); Albumin 3.9 g/dL (3.4-5.0); Alkaline Phosphatase 72 U/L (46-116); Anion Gap 5.4 mmol/L (3-11); BUN 18 mg/dL (7-18); Bilirubin, Total 0.3 mg/dL (0.2-1.0); CO2 29.6 mmol/L (21.0-32.0); CREATININE 1.2 mg/dL (0.70-1.30); Calcium 9.5 mg/dL (8.5-10.1); Chloride 103 mmol/L (98-107); Estimated GFR 67.11 (mL/min/1.73m2); Glucose 102 mg/dL (74-106); Potassium 4.6 mmol/L (3.5-5.1); Sodium 138 mmol/L (136-145); Total Protein 7.6 g/dL (6.4-8.2)
[2023-05-31 09:44] LABS: PSA, Ultrasensitive 10.7 ng/mL (<= 4.5)
[2023-06-02 16:28] LABS: Testosterone, Total 365 ng/dL (240-950)
== END 2023-05-29 10:15 | disposition home or self-care (01) ==
LOC: LBO 10:14
PROVIDERS: PCP Nurse Practitioner Family; Visit Provider Radiology Radiation Oncology
DX: C61 Malignant neoplasm of prostate (principal)
CPT/HCPCS: 36415; 80053; 84153; 84403; 85025

== ENCOUNTER 2023-07-25 10:16 | Outpatient (CLI) | payer MEDICARE, SELFPAY ==
[2023-07-28 13:36] LABS: PSA, Ultrasensitive 7.9 ng/mL (<= 4.5)
== END 2023-07-25 10:17 | disposition home or self-care (01) ==
LOC: LBO 10:16
PROVIDERS: PCP Nurse Practitioner Family; Visit Provider Radiology Radiation Oncology
DX: C61 Malignant neoplasm of prostate (principal)
CPT/HCPCS: 36415; 84153

== ENCOUNTER 2023-08-27 03:53 | Outpatient (CLI) | payer MEDICARE, SELFPAY ==
[2023-08-29 16:28] LABS: PSA, Ultrasensitive 7.3 ng/mL (<= 4.5)
== END 2023-08-27 03:54 | disposition home or self-care (01) ==
LOC: LBO 03:53
PROVIDERS: PCP Nurse Practitioner Family; Visit Provider Radiology Radiation Oncology
DX: C61 Malignant neoplasm of prostate (principal)
CPT/HCPCS: 36415; 84153

== ENCOUNTER 2023-10-06 05:01 | Outpatient (CLI) | payer MEDICARE, SELFPAY ==
[2023-10-07 17:52] LABS: PSA, Ultrasensitive 2.1 ng/mL (<= 4.5)
== END 2023-10-06 05:02 | disposition home or self-care (01) ==
LOC: LBO 05:01
PROVIDERS: PCP Nurse Practitioner Family; Visit Provider Radiology Radiation Oncology
DX: C61 Malignant neoplasm of prostate (principal)
CPT/HCPCS: 36415; 84153

== ENCOUNTER 2023-12-04 00:54 | Outpatient (CLI) | payer MEDICARE, SELFPAY ==
[2023-12-06 09:46] LABS: PSA, Ultrasensitive 1.5 ng/mL (<= 4.5)
== END 2023-12-04 00:55 | disposition home or self-care (01) ==
LOC: LBO 00:54
PROVIDERS: PCP Nurse Practitioner Family; Visit Provider Radiology Radiation Oncology
DX: C61 Malignant neoplasm of prostate (principal)
CPT/HCPCS: 36415; 84153

== ENCOUNTER 2024-03-29 09:48 | Outpatient (CLI) | payer MEDICARE, SELFPAY ==
[2024-03-29 08:02] LABS: ALT 18 U/L (16-63); AST 15 U/L (15-37); Albumin 3.4 g/dL (3.4-5.0); Alkaline Phosphatase 104 U/L (46-116); Anion Gap 11.5 mmol/L (3-11); BUN 16 mg/dL (7-18); Bilirubin, Total 0.49 mg/dL (0.2-1.0); CO2 26.5 mmol/L (21.0-32.0); CREATININE 1.2 mg/dL (0.70-1.30); Calculated LDL 72 mg/dL (<100); Chloride 107 mmol/L (98-107); Cholesterol 126 mg/dL (<200); Glucose 112 mg/dL (74-106); HDL Cholesterol 40 mg/dL (40-60); Sodium 145 mmol/L (136-145); Total Protein 7.5 g/dL (6.4-8.2); Triglyceride 71 mg/dL (<150)
== END 2024-03-29 09:49 | disposition home or self-care (01) ==
LOC: LBO 09:49
PROVIDERS: Radiology Radiation Oncology; PCP Nurse Practitioner Family; Visit Provider Nurse Practitioner Family
DX: E78.5 Hyperlipidemia, unspecified (principal); C61 Malignant neoplasm of prostate
CPT/HCPCS: 36415; 80053; 80061; 84153

== ENCOUNTER 2024-04-01 00:37 | Outpatient (CLI) | payer MEDICARE, SELFPAY ==
--- NOTE | 2024-04-01 08:40 | DI.CT_ITS ---
Exam(s) CT CHEST WO EXAM: CT CHEST WO CLINICAL HISTORY: 1 yr follow up,lung nodules,r91.1. TECHNIQUE: Imaging protocol: Axial computed tomography images were obtained and coronal and sagittal reformatted images were created and reviewed. COMPARISON: CT CT CHEST PE ABD PELVIS W from 09/05/[address] CHEST WO from 03/31/2023 FINDINGS: Tracheobronchial tree: Patent where visualized. No bronchiectasis is present. Pulmonary parenchyma: No consolidation or dominant measurable mass. There are calcified granuloma pre sent. There is no change in the triangular shaped 7 mm nodule in the lateral aspect of the left lung apex (series 3, image 29). No new pulmonary nodules are present. Mediastinum and Sharri: No dominant adenopathy or fluid collection. The esophagus is unremarkable.There is a small hiatal hernia. Thyroid gland: Unremarkable. Pleura: No effusion or pneumothorax. Heart: The heart is not dilated. Three vessel coronary artery calcification is present. No pericardia l effusion. Aorta: Thoracic aorta non-dilated. Atherosclerotic calcification is present. Upper abdomen: Unremarkable. Lymph nodes: Within normal limits. Soft tissues: Unremarkable. Bones:Within normal limits for the patient's age. IMPRESSION: Stable left lung nodule. No new pulmonary nodules. For solitary solid noncalcified nodules measuring 6???8 mm in patients at high risk, an initial follo w-up examination is recommended at 6???12 months and again at 18???24 months (grade 1B: strong recomm endation, moderate quality evidence). (Manuel et al., 2017) Solitary noncalcified solid nodules measuring 6???8 mm in patients with low clinical risk are recomme nded to undergo initial follow-up at 6???12 months depending on size, morphology, and patient prefere nce (grade 1C: strong recommendation, low- or dhpm-wke-vhneadr evidence). (Manuel et al., 2017) RADIATION DOSE DELIVERED: 222.06mGy.cm Total DLP 222.06mGy.cm Total DLP DATA REPOSITORY: All CT scans at this facility are submitted to the National Radiology Data Registry (NRDR) Dose Index Registry (DIR) with the [employer] (ACR). RADIATION OPTIMIZATION: All CT scans at this facility use at least one of these dose optimization te chniques: automated exposure control; mA and/or kV adjustment per patient size (includes targeted exa ms where dose is matched to clinical indication); or iterative reconstruction.
== END 2024-04-01 00:57 ==
PROVIDERS: PCP Nurse Practitioner Family; Visit Provider Nurse Practitioner Family
DX: R91.1 Solitary pulmonary nodule (principal)
CPT/HCPCS: 71250

== ENCOUNTER → 2024-06-15 13:25 | Outpatient (BNVA) | payer MEDICARE, SELFPAY | PROVIDERS: PCP Nurse Practitioner Family; Referring Provider Nurse Practitioner Family; Visit Provider Urology | DX: Z85.46 Personal history of malignant neoplasm of prostate (principal); R31.0 Gross hematuria | CPT/HCPCS: 99213 ==

== ENCOUNTER 2024-06-17 04:11 | Outpatient (CLI) | payer MEDICARE, SELFPAY ==
[2024-06-17 10:28] LABS: CREATININE 1.2 mg/dL (0.70-1.30)
[2024-06-19 11:03] LABS: PSA, Ultrasensitive 0.98 ng/mL (<= 4.5)
== END 2024-06-17 04:12 | disposition home or self-care (01) ==
PROVIDERS: Urology; PCP Nurse Practitioner Family; Visit Provider Radiology Radiation Oncology
DX: R31.0 Gross hematuria (principal); C61 Malignant neoplasm of prostate
CPT/HCPCS: 36415; 84153; 82565

== ENCOUNTER 2024-06-18 00:13 | Outpatient (CLI) | payer MEDICARE, SELFPAY ==
--- NOTE | 2024-06-18 07:30 | DI.CT_ITS ---
Exam(s) CT ABDOMEN PELVIS WO/W EXAM: CT ABDOMEN PELVIS WO/W CLINICAL HISTORY: hematuria evaluation,R31.0. TECHNIQUE: Imaging Protocol: Axial computed tomography images with coronal and sagittal reformatted images were created and reviewed. Images were performed from the lung bases through the ischial tuberosities before IV contrast and fol lowing IV contrast using a 70 second delay, followed by 7 minutes delayed images. CONTRAST MATERIAL: Intravenous: Omnipaque 350 Contrast volume:100 cc Oral: no COMPARISON: CT CT CHEST PE ABD PELVIS W from 09/05/2022 FINDINGS: Lung Bases: Normal where visualized. Liver: Normal density. No measurable mass. Gallbladder and biliary tract: No biliary dilation. Pancreas: Normal density, no abnormal calcifications or inflammatory process. Spleen: Normal. Kidneys: Normal size, contour and axis. No radiodense stones or obstructive uropathy. No suspicious m asses seen. Adrenal glands: No masses seen. Lymph nodes: Within normal limits. Abdominal Aorta: Abdominal portion non-dilated. Soft tissues: Prior lower anterior abdominal wall hernia repair. Bladder: Mild diffuse wall thickening. No evidence of a mass.No evidence of calculi. Bowel: Stomach unremarkable. No obstruction or bowel wall thickening. Appendix normal. Mild diverti culosis. No evidence of diverticulitis. Peritoneal cavity: No ascites, collection or mesenteric inflammatory response. Bones: Unremarkable for age. No lytic or blastic lesions.. Reproductive organs: Prostate is enlarged, impressing on the base of the bladder. 5.5 x 5 by 7 cm. Metallic seeds. IMPRESSION: No suspicious renal mass. No evidence of urinary tract calculi. No evidence of hydronephrosis. Markedly enlarged prostate which impresses on the base of the bladder. Mild bladder wall thickening. No evidence of bladder mass or calculi. RADIATION DOSE DELIVERED: Total DLP DATA REPOSITORY: All CT scans at this facility are submitted to the National Radiology Data Registry (NRDR) Dose Index Registry (DIR) with the [employer] (ACR). RADIATION OPTIMIZATION: All CT scans at this facility use at least one of these dose optimization te chniques: automated exposure control; mA and/or kV adjustment per patient size (includes targeted exa ms where dose is matched to clinical indication); or iterative reconstruction.
[2024-06-18] MEDS: Normal Saline - Diluent 50 ML VIAL IJ (14:51)
[2024-06-18] MEDS: Omnipaque 350 MG/ML 100 ML BTL IJ (14:52)
== END 2024-06-18 00:33 ==
LOC: DI 00:15
PROVIDERS: PCP Nurse Practitioner Family; Visit Provider Urology
DX: N40.1 Benign prostatic hyperplasia with lower urinary tract symptoms
CPT/HCPCS: 74178; J3490

== ENCOUNTER → 2024-07-20 10:44 | Outpatient (BNVA) | payer MEDICARE, SELFPAY | PROVIDERS: PCP Nurse Practitioner Family; Referring Provider Nurse Practitioner Family; Visit Provider Urology | DX: C61 Malignant neoplasm of prostate (principal); R31.0 Gross hematuria | CPT/HCPCS: 52000; 81003; 99215 ==

== ENCOUNTER 2024-07-20 11:15 | Outpatient (REF) | payer MEDICARE, SELFPAY ==
--- NOTE | 2024-07-20 11:15 | PAPNONF_PTH ---
PATIENT: Juve Carpenter LOC: [facility] U#:[id number] AGE/SX: 68/M ROOM: RE07/20/[address]: Reyes Pearl MD : 1955 BED: DIS: 07/20/2024 SPEC #: [id number] RECD: 07/20/24 13:05 STATUS: LISA REQ #: [id number] OSMEL: 07/20/24 11:[address]: Reyes Pearl DEPT: [facility] Cytology RECD BY: Casie Power ENTERED: 07/20/24 13:05 SP TYPE: ALEJANDRO LÓPEZ DR: Tio Olson, [place] Tissues: 1 - BODY FLUID CYTO(SPUTUM/URINE)[facility] Procedures: BODY FLUID CYTO(URINE/SPUTUM) Comments: [id number] (TV = 50 ml, 30 ml CYTOLYT ADDED) (REFRIGERATED)
== END 2024-07-20 11:16 | disposition home or self-care (01) ==
LOC: LBN 11:15
PROVIDERS: PCP Nurse Practitioner Family; Visit Provider Urology
DX: R31.9 Hematuria, unspecified (principal); M79.89 Other specified soft tissue disorders
CPT/HCPCS: 88104

== ENCOUNTER 2024-07-26 08:45 | Day surgery (SDC) | payer MEDICARE, SELFPAY ==
[2024-07-26] VITALS (29 sets, daily range): BP systolic 102–167; BP diastolic 66–105; PULSE 57–70; RESP 10–21; TEMP 36.3–36.7; O2SAT 93–98; BMI 29.3
[2024-07-26] MEDS: Lactated Ringers 1,000 ML 80 ML IV (09:26)
--- NOTE | 2024-07-26 09:33 | W.ANESPRE ---
General Info Date of Service Date Performed: 07/26/24 Height: 5 ft 7 in Weight: 85 kg Body Mass Index (BMI): 29.3 Surgical Procedure: Operation Date: 07/26/24 10:25 Proposed Procedure Side Surgeon p Cystoscopy/Transurethral Resection Bladder Tumor Reyes Pearl MD Meds Allergies and Home Medications Allergies Allergy/AdvReac Type Severity Reaction Status Date / Time codeine Allergy Severe Hives Verified 07/26/24 08:59 Home Medication ?Medication ?Instructions ?Recorded acetaminophen 325 mg capsule 325 mg PO ONCE PRN 09/05/22 (Tylenol) famotidine 20 mg tablet (Pepcid) 20 mg PO DAILY #90 tabs 12/09/23 mirtazapine 45 mg tablet 45 mg PO QHS #90 tabs 12/09/23 rosuvastatin 20 mg tablet 20 mg PO HS #90 tabs 12/09/23 propranolol 40 mg tablet 40 mg PO BID PRN anxiety, 03/12/24 palpitations #60 tabs escitalopram oxalate 20 mg tablet 20 mg PO DAILY #90 tabs 04/14/24 tamsulosin 0.4 mg capsule 0.4 mg PO DAILY 06/07/24 Current Visit Medications: Current Medications Generic Name Dose Route Start Last Admin Trade Name Freq PRN Reason Stop Dose Admin Ringer's Solution 1,000 mls @ 80 mls/hr 07/26/24 06:00 07/26/24 09:26 IV 07/26/24 23:59 80 mls/hr INFUSION MIAH Administration Cefazolin Sodium/Dextrose 2 gm in 50 mls @ 100 mls/hr 07/26/24 06:00 Ancef Duplex IVPB 07/26/24 23:59 PREOP MIAH IV Miscellaneous Supplies 1 each 07/26/24 06:00 Iv Access IV 07/26/24 23:59 DIRECTED MIAH Sodium Chloride 0 ml 07/26/24 06:00 Normal Saline Flush 10 Ml Syr IV 07/26/24 23:59 PRN PRN Sodium Chloride 0 ml 07/26/24 06:00 Normal Saline 10 Ml Vial IJ 07/26/24 23:59 DIRECTED PRN Sterile Water 0 ml 07/26/24 06:00 Water,Injection,Sterile 10 Ml Vial IJ 07/26/24 23:59 DIRECTED PRN PFSH Active Problems Active Problems: Problem Status Onset Code Gross hematuria Acute R31.0 Prediabetes Acute R73.03 Prostate cancer Chronic C61 Hyperlipidemia Acute E78.5 Generalized anxiety disorder Acute F41.1 Lung nodule Acute R91.1 Prostate nodule Acute N40.2 Hypertension Chronic I10 Palpitation Acute R00.2 Medical History Medical History Elevated PSA Surgical History Surgical History H/O hernia repair Tobacco Smoking/Tobacco Use Status: Former Tobacco Use Smokeless tobacco user: chewing tobacco Second hand exposure: Yes Alcohol Alcohol Intake: former Year quit: 2021 Substance Use Substance use: Rarely Substance use type: marijuana Vital Signs and Lab Results Vital Signs Most Recent Vital Signs in EMR: Most Recent Vital Signs Temp Pulse Resp BP Pulse Ox 36.5 C 68 16 144/91 H 97 07/26/24 09:06 07/26/24 09:06 07/26/24 09:06 07/26/24 09:06 07/26/24 09:06 Lab Results Blood Type / Crossmatch: No Data to Display Complete Blood Count: No Data to Display Complete Metabolic Panel: No Data to Display Liver Function Panel: No Data to Display Coagulation Panel: No Data to Display Cardiac Panel: No Data to Display Arterial Blood Gas: No Data to Display Venous Blood Gas: No Data to Display Pancreas Panel: No Data to Display Thyroid Panel: No Data to Display Infectious Disease: No Data to Display Blood Cultures: No Data to Display Toxicology Panel: No Data to Display Anesthesia Assessment and Plan Anesthesia History Personal History: No History of Anesthesia Complications Family History: No Family History of Anesthesia Complications Exercise Tolerance Exercise Tolerance: Metabolic Equivalents>4 Pertinent Negatives Pertinent Negatives: No Symptoms of GERD Cardiac & Pulmonary Exam Cardiac Exam: Normal S1/S2 Heart Sounds Pulmonary Exam: Clear Bilateral Breath Sounds Implantable Cardiac Device Does patient have a Pacemaker or an ICD?: No Airway Exam Known Difficult Airway: No Mallampati Class: 1 Mouth Opening: Normal (> 3cm) Thyromental Distance: Greater than 3 cm Neck Range of Motion: Full ROM Neck Circumference: Normal Teeth Condition: Normal Dentition ASA Classification ASA Score: ASA 3 Emergency Case?: No NPO Status NPO Status: NPO Clears >2 hours, Solids >8 hours Anesthesia Plan Resuscitation Status: Full Code Anesthesia Technique: General Anesthesia Airway Planned: Natural Airway Monitors Used: Standard Monitors
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
[2024-07-26] MEDS: ceFAZolin 2 GM/50 ML BAG IVPB (10:45)
[2024-07-26] MEDS: Lidocaine 2% Jelly 11 ML SYR (11:02)
--- NOTE | 2024-07-26 11:16 | BLADDER_PTH ---
PATIENT: Juve Carpenter LOC: [facility] U#:[id number] AGE/SX: 68/M ROOM: RE07/26/[address]: Reyes Pearl MD : 1955 BED: DIS: 07/26/2024 SPEC #: [id number] RECD: 07/26/24 13:09 STATUS: LISA REQ #: [id number] OSMEL: 07/26/24 11:[address]: Reyes Pearl DEPT: Surgical Specimen RECD BY: Casie Power ENTERED: 07/26/24 13:10 SP TYPE: Bladder OTHR DR: Tio Olson DNP Tissues: 1 - BLADDER CURRETTINGS Procedures: GROSS AND MICRO LEVEL 5 Comments: [id number]
--- NOTE | 2024-07-26 11:43 | W.PM.DSUDISC ---
Date of service: 07/26/24 Discharge Plan Disposition Patient Disposition: Home Condition: Stable Discharge Details Reason For Visit: transurethral resection of bladder mass Attending Provider: Reyes Pearl Primary Care Provider: Tio Kim Home Meds and New Rx's Prescriptions: New sulfamethoxazole-trimethoprim [Bactrim DS] 800-160 mg tablet 1 tab PO BID Qty: 10 0RF No Action acetaminophen [Tylenol] 325 mg capsule 325 mg PO ONCE PRN tamsulosin 0.4 mg capsule 0.4 mg PO DAILY escitalopram oxalate 20 mg tablet 20 mg PO DAILY Qty: 90 4RF famotidine [Pepcid] 20 mg tablet 20 mg PO DAILY Qty: 90 4RF mirtazapine 45 mg tablet 45 mg PO QHS Qty: 90 1RF rosuvastatin 20 mg tablet 20 mg PO HS Qty: 90 4RF propranolol 40 mg tablet 40 mg PO BID PRN (Reason: anxiety, palpitations) Qty: 60 5RF Discharge Instructions Additional Instructions: hanna to drainage (either large bag or leg bag) followup 2 to 3 days for catheter removal additional followup visit 1 to 2 weeks for pathology results Activity:: no lifting over 10 pounds for 1 week Shower/Bathe:: 24 hours Diet:: As Tolerated DS: Diagnosis Discharge Diagnosis (1) Gross hematuria: Status: Acute
--- NOTE | 2024-07-26 11:48 | W.PM.OP ---
Operative Note Operative Note PRE-OP DIAGNOSIS: Bladder mass POST-OP DIAGNOSIS: same PROCEDURE: cystoscopy with transurethral resection of bladder mass SURGEON: Reyes Pearl ANESTHESIA TYPE: Local By Surgeon and General:No Airway Refer to Anesthesia Record ESTIMATED BLOOD LOSS: 50 PATHOLOGY: other (bladder mass) COMPLICATIONS: None Patient was transported to: PACU Patient's condition: stable Implants: 20 [place] hanna with 10 cc sterile water in balloon Indications: This is a 68-year-old gentleman who was diagnosed with adenocarcinoma of the prostate. He was treated with external beam radiation. He then developed gross hematuria. A CT urogram showed no significant upper tract disease. Cystoscopy revealed a necrotic mass at the bladder neck. Cystoscopically, it was difficult to tell if the mass was bladder in origin or if it was the patient's median lobe of the prostate. He presents now for cystoscopy and transurethral resection of the area Findings: Necrotic mass extending from the prostate into the bladder. Multiple calcifications adherent to the necrotic mass Procedure Description: The patient was given IV antibiotics and brought to the operating room on 07/26/2024. After successful induction of general anesthesia, he was placed in the dorsal lithotomy position. His genitalia was prepped with Betadine. 2% Xylocaine jelly was instilled into the urethra to act as a local anesthetic. A 22 [place] rigid cystoscope was passed through the urethra into the bladder. The bladder was drained and a specimen was collected to be sent for culture and sensitivity. The bladder was then inspected using a 30 degree lens. A necrotic mass was again visualized at the bladder neck. The mass appeared to be stone encrusted. The mass extended from the bladder neck up into the bladder itself. I then removed the cystoscope and passed a 24 [place] resectoscope sheath through the urethra into the bladder. Transurethral resection of the visible mass was performed using an [employer] resectoscope and bipolar cautery. This was not a complete resection of the mass, but adequate resection for tissue diagnosis. All resected tissue was evacuated and sent to pathology for permanent section. At the completion of the procedure, I was able to visualize both ureteral orifices and they both appeared normal with no blood coming from either side. The resection sites were cauterized using bipolar cautery. The bladder was then filled with irrigant and the resectoscope was removed. A 20 [place] Hanna catheter was passed through the urethra into the bladder. The catheter balloon was inflated with 10 cc of sterile water and the catheter was hooked to gravity drainage. The patient tolerated this procedure well with no complications. He was taken to the recovery room in stable condition. Date of Procedure: 07/26/24
[2024-07-26] MEDS: fentaNYL 100 MCG/2 ML VIAL IVP (12:31)
--- NOTE | 2024-07-26 12:38 | W.ANESPOSTOP ---
Postoperative Evaluation Date, Time and Location Date Performed: 07/26/24 Time Performed: 12:39 Patient Location: PACU Vital Signs Most Recent Imported Vital Signs: Most Recent Vital Signs Temp Pulse Resp BP Pulse Ox 36.7 C 65 16 130/86 94 07/26/24 12:26 07/26/24 12:13 07/26/24 12:13 07/26/24 12:13 07/26/24 12:13 Pain Score Most Recent Pain Score: Most Recent Pain Score Pain Level 5 07/26/24 12:26 Assessment Mental Status: Awake (Alert & Oriented to Patient Baseline) Airway and Respiratory Function: Patent airway with normal (patient baseline) respiratory exam Cardiovascular Function: Hemodynamically Stable Hydration Status: Adequately Hydrated Nausea & Vomiting: No Nausea or Vomiting Pain: Pain is tolerable per patient Peripheral Nerve Block: Patient did not receive a nerve block
[2024-07-26] MEDS: Phenazopyridine 200 MG TAB PO (13:17)
== END 2024-07-26 14:06 | disposition home or self-care (01) ==
PROVIDERS: PCP Nurse Practitioner Family; Visit Provider Urology
PROC: 0TBB8ZZ Excision of Bladder, Via Natural or Artificial Opening Endoscopic (ICD-10-PCS; CPT 52240; principal; 2024-07-26 10:15)
DX: N32.89 Other specified disorders of bladder (principal); R31.0 Gross hematuria; R73.03 Prediabetes; E78.5 Hyperlipidemia, unspecified; F41.1 Generalized anxiety disorder; R91.1 Solitary pulmonary nodule; I10 Essential (primary) hypertension; C61 Malignant neoplasm of prostate; Z92.3 Personal history of irradiation
CPT/HCPCS: 52240; 87077; 87086; 87186; 88307; J0690; J1100; J1885; J2250; J2405; J2704; J3010

== ENCOUNTER → 2024-07-28 07:52 | Outpatient (BNVA) | payer MEDICARE, SELFPAY | PROVIDERS: PCP Nurse Practitioner Family; Referring Provider Nurse Practitioner Family; Visit Provider Nurse Practitioner Gerontology | DX: Z48.816 Encounter for surgical aftercare following surgery on the genitourinary system (principal); R31.0 Gross hematuria ==

== ENCOUNTER → 2024-08-16 10:54 | Outpatient (BNVA) | payer MEDICARE, SELFPAY | PROVIDERS: PCP Nurse Practitioner Family; Referring Provider Nurse Practitioner Family; Visit Provider Urology | DX: R31.0 Gross hematuria (principal) | CPT/HCPCS: 99213 ==

== ENCOUNTER 2024-12-23 02:05 | Outpatient (CLI) | payer MEDICARE, SELFPAY ==
[2024-12-23 10:46] LABS: Hemoglobin A1C 5.9 % (<5.7)
[2024-12-23 12:13] LABS: ALT 32 U/L (16-63); AST 23 U/L (15-37); Albumin 3.6 g/dL (3.4-5.0); Alkaline Phosphatase 79 U/L (46-116); Anion Gap 8.7 mmol/L (3-11); BUN 16 mg/dL (7-18); Bilirubin, Total 0.4 mg/dL (0.2-1.0); CO2 27.3 mmol/L (21.0-32.0); Calcium 8.9 mg/dL (8.5-10.1); Calculated LDL 82 mg/dL (<100); Chloride 105 mmol/L (98-107); Cholesterol 138 mg/dL (<200); Estimated GFR 82.49 (mL/min/1.73m2); Glucose 114 mg/dL (74-106); HDL Cholesterol 42 mg/dL (>or=40); Potassium 4.3 mmol/L (3.5-5.1); Sodium 141 mmol/L (136-145); Total Protein 7.2 g/dL (6.4-8.2); Triglyceride 72 mg/dL (<150)
== END 2024-12-23 02:06 | disposition home or self-care (01) ==
LOC: LBO 02:05
PROVIDERS: PCP Nurse Practitioner Family; Visit Provider Physician Assistant
DX: E78.5 Hyperlipidemia, unspecified (principal); R73.03 Prediabetes; C61 Malignant neoplasm of prostate
CPT/HCPCS: 36415; 80053; 80061; 84153; 83036

== ENCOUNTER → 2025-04-29 03:00 | Outpatient (CLI) | payer MEDICARE, SELFPAY ==
--- NOTE | 2025-04-29 07:00 | DI.CT_ITS ---
Exam(s) CT CHEST WO EXAM: CT CHEST WO CLINICAL HISTORY: 1 year f/u,LUNG NODULE,R91.1. TECHNIQUE: Multi planar reconstructions were performed. CONTRAST MATERIAL: None COMPARISON: CT CT CHEST WO from 04/01/2024 FINDINGS: CHEST: LUNGS: Small benign calcified granulomas predominately in the right lung are again noted, unchanged. No new significant right lung findings. Calcified granuloma in the left lower lobe is also unchanged. With respect to the previously described pleural based density in the lateral aspect of the left lung apex, this 7 millimeter finding remains unchanged. No new additional similar findings in the lung hyatt. There are no pleural effusions. No significant focal findings in the trachea and mainstem bronchi. MEDIASTINUM: There is no obvious hilar nor mediastinal adenopathy. Visualized thyroid unremarkable.No obvious axillary adenopathy CARDIAC: Heart size is normal. There is no pericardial effusion.Caliber of the thoracic aorta is within normal limits. VISUALIZED UPPER ABDOMEN:No adrenal masses. Normal spleen size. No ascites. OSSEOUS: No significant osseous lesions.. IMPRESSION: 1. There is continued stable appearance of the 7 millimeter pleural based nodule in the lateral aspect of the left upper lobe sub apical region. There is no associated intrathoracic lymphadenopathy and there are no pleural effusions. 2. Again noted are small benign calcified granulomas, more numerous in the right lung and with the solitary granuloma noted in the left lung lower lobe, all unchanged 3. Essentially this study is unchanged from the CT scan of 04/01/2024. RADIATION DOSE DELIVERED: 214.64mGy.cm Total DLP DATA REPOSITORY: All CT scans at this facility are submitted to the National Radiology Data Registry (NRDR) Dose Index Registry (DIR) with the [employer] ([employer]). RADIATION OPTIMIZATION: All CT scans at this facility use at least one of these dose optimization techniques: automated exposure control; mA and/or kV adjustment per patient size (includes targeted exams where dose is matched to clinical indication); or iterative reconstruction.
== END ==
PROVIDERS: PCP Nurse Practitioner Family; Visit Provider Nurse Practitioner Family
DX: R91.1 Solitary pulmonary nodule (principal)
CPT/HCPCS: 71250

== ENCOUNTER 2025-06-13 00:44 | Outpatient (CLI) | payer MEDICARE, SELFPAY | END 2025-06-13 00:45 | disposition home or self-care (01) | PROVIDERS: PCP Nurse Practitioner Family; Visit Provider Physician Assistant | DX: C61 Malignant neoplasm of prostate (principal) | CPT/HCPCS: 36415; 84153 ==